=== PATIENT | female | born 1970 | race Two or more races ===

== ENCOUNTER 2016-12-26 11:18 | Emergency (ER) | payer OTHER ==
[2016-12-26] MEDS ORDERED: diPHENhydraMINE PO* 50 MG PO ONE (11:30)
[2016-12-26] MEDS ORDERED: Famotidine IV* 10 MG/ML 2 ML (20 mg) IV SLOW PU ONE (11:52)
[2016-12-26] MEDS ORDERED: methylPREDNISolone 125 MG* 2 ML VIAL IV ONE (11:52)
[2016-12-26] MEDS ORDERED: Albuterol 2.5 MG/3 ML NEB.SOL* (0.083%) INH ONE (11:56)
[2016-12-26] MEDS ORDERED: diPHENhydraMINE IV* 50 MG/ML 1 ml VIAL (BENADRYL) IV ONE (12:00)
[2016-12-26] MEDS ORDERED: NS 0.9% 1000 ML* 1,000 ML BOLUS SCH (12:15)
--- NOTE | 2016-12-26 12:17 | UC ---
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 Pt gave herself one Epipen 0.3mg at 10:53, then she repeated a second Epipen 0.3mg at 11:10am because she was feeling her chest tighten like it does when she has an asthma attack. Pt has hx RA on Plaquenil and other immunosuppressives, and also has prior hx RBBB, Vtach, MVP and had an AICD in 2009. Pt states the leads kept scarring and the AICD was removed and "she passed" a subsequent EP study in 2014 and did not need the AICD re-implanted. Pt follows with cardiology at [facility] in [facility]. Pt has been advised to use xopenex rather than albuterol because of her hx arrythmia. Pt came to urgent care because she was hoping she did not have to go to the ER. Pt ambulated in to urgent care, driven by a friend, accompanied by her two children. During my evaluation pt's voice changed dramatically from slightly "scratchy" to fully hoarse and pt complained of increased throat tightness. Pt did not complain of palpitations or chest pain during this, and was not wheezing and there were no hives, only the localized swelling at the beesting site on her left cheek. Pt had been given oral benadryl 50mg upon walking into urgent care. When her voice changed, IV was placed and IV solumedrol 125mg was given, pepcid 20mg IV given, additional benadryl 50mg IV given and ambulance and [place] [facility] were called. EKG showed SR 84, RBBB, no acute changes. Pt had diarrhea suddenly after the administration of the meds, ambulated to the BR with assistance and moved her bowels without incidence and then was moved to the ambulance stretcher. - History of Current Complaint Chief Complaint: UCAllergicReaction Stated Complaint: BEE STING - ALLERGIC Time Seen by Provider: 12/26/16 11:37 Hx Obtained From: Patient Hx Last Menstrual Period: one week ago ?: No Onset/Duration: Sudden Onset, Lasting Hours, Still Present Severity Initially: Moderate Severity Currently: Moderate Pain Intensity: 3 Pain Scale Used: 0-10 Numeric Location: Discrete @ - beesting to left cheek Character: Swelling Aggrevating Factor(s): Nothing Alleviating Factor(s): Epinephrine - x 2 given Associated Signs And Symptoms: Positive: Chest Pain, Difficulty Breathing, Hoarseness, Throat Tightening - Related Hx Possible Reaction To: Insect - beesting - Allergies/Home Medications Allergies/Adverse Reactions: Allergies Allergy/AdvReac Type Severity Reaction Status Date / Time Cephalexin [From Keflex] Allergy Hives Verified 12/26/16 11:24 Iodinated Diagnostic Agents Allergy Hives Verified 12/26/16 11:24 Latex Allergy Hives Verified 12/26/16 11:24 Penicillins Allergy Hives Verified 12/26/16 11:24 Sulfa Antibiotics Allergy Hives Verified 12/26/16 11:24 Vancomycin Allergy See Comment Verified 12/26/16 11:24 adhesive by 3M Allergy Hives Uncoded 12/26/16 11:24 MRI contrast Allergy Hives Uncoded 12/26/16 11:24 Home Medications: Home Medications Leflunomide [Arava] 20 mg PO DAILY 12/26/16 [History Confirmed 12/26/16] PMH/Surg Hx/FS Hx/Imm Hx Previously Healthy: No - RA, anaphylaxis to beestings Cardiovascular History: Pacemaker/ICD - AICD for vtach placed 2009, removed 2014 , Other - RBBB, MVP Other Cardiovascular History: RBBB, MVP Respiratory History: Asthma - Surgical History Surgical History: Yes Surgery Procedure, Year, and Place: Ovarian CA partial oopharctomy 2002 Bariatric 2009. Adrenal mass removed lt side 2005,. Twisted bowel sm intestine 2012. AICD 2009. AICD removal 2014. Tonsillectomy and adenoidectomy 1990. Hernia repair and abdominoplasty 2016. Wound I&D 2016 - Family History Known Family History: Positive: Other - Breast Cancer - Social History Lives: With Family Alcohol Use: Daily Alcohol Amount: wine daily Substance Use Type: None Substance Use Comment - Amount & Last Used: OCCASSIONALLY USES MARIJUANA Smoking Status (MU): Never Smoked Tobacco Have You Smoked in the Last Year: No - Immunization History Most Recent Influenza Vaccination: 2016 Most Recent Tetanus Shot: 2013 Most Recent Pneumonia Vaccination: 2013 Review of Systems Constitutional: Negative Skin: Rash - redness, swelling at left cheek beesting site, no other rash or hives Eyes: Negative ENT: Other - hoarse voice, throat tightness Respiratory: Negative Cardiovascular: Negative Gastrointestinal: Diarrhea - x 1 in UC after meds Motor: Negative Neurovascular: Negative Musculoskeletal: Negative Neurological: Negative Psychological: Negative All Other Systems Reviewed And Are Negative: Yes Physical Exam Triage Information Reviewed: Yes Appearance: Well-Appearing, Well-Nourished, Pain Distress Vital Signs: Initial Vital Signs Temp 98.2 F 12/26/16 11:19 Pulse 88 12/26/16 11:19 Resp 14 12/26/16 11:19 BP 153/99 12/26/16 11:19 Pulse Ox 97 12/26/16 11:19 Vital Signs Reviewed: Yes Eyes: Positive: Conjunctiva Clear ENT: Positive: Pharynx normal, Muffled/hoarse voice, Other: - no uvula edema Neck: Positive: Supple, Nontender, No Lymphadenopathy Respiratory: Positive: Chest non-tender, No respiratory distress, No accessory muscle use, Decreased breath sounds - throughout Cardiovascular: Positive: RRR, No Murmur, Pulses Normal, Brisk Capillary Refill Abdomen Description: Positive: Nontender, Soft Musculoskeletal: Positive: Strength Intact, ROM Intact Neurological: Positive: Alert, Muscle Tone Normal Psychological Exam: Normal Skin: Positive: Other - beesting site with redness swelling 4cm diameter, left cheek. Negative: rashes Allergic Reaction Course/Dx - Course Course Of Treatment: As per HPI, pt walked into in no distress. Rece'd po benadryl after triage. Upon further evaluation pt became increasing hoarse in front of us and complained of throat tightness. IV meds were then given. Solumedrol 125, Pepcid 20mg, additional benadryl 50mg IV. EKG SR, 84, nl AVCT, RBBB, no acute changes. QTc 497. CRITICAL CARE TIME 30 minutes - Differential Dx/Diagnosis Differential Diagnosis/HQI/PQRI: Airway Obstruction, Anaphylaxis, Bronchospasm Provider Diagnoses: acute anaphylaxis to beesting - Physician Notification/Consults Instructed by Provider To: Transfer - to [facility] ED, discussed with Dr. Weber and KARISHMA Hutchinson. Discharge - Discharge Plan Condition: Guarded Disposition: TRANS HIGHER LVL OF CARE FAC Discharge Disposition Comment: transfer to [facility] via ambulance, ALS Referrals: Faiza BARNEY,Leni Carreon [Primary Care Provider] -
[2016-12-26 12:18] VITALS: BP 198/100
== END 2016-12-26 12:21 | disposition short-term general hospital (02) ==
LOC: UCCORT 11:18
DX: T63.441A Toxic effect of venom of bees, accidental (unintentional), initial encounter (principal); T78.2XXA Anaphylactic shock, unspecified, initial encounter; R07.89 Other chest pain; R06.00 Dyspnea, unspecified; R07.0 Pain in throat; X58.XXXA Exposure to other specified factors, initial encounter; M06.9 Rheumatoid arthritis, unspecified; Z95.0 Presence of cardiac pacemaker; I45.10 Unspecified right bundle-branch block; I34.1 Nonrheumatic mitral (valve) prolapse; J45.909 Unspecified asthma, uncomplicated; Z98.84 Bariatric surgery status; Z85.43 Personal history of malignant neoplasm of ovary; Z88.1 Allergy status to other antibiotic agents; Z91.030 Bee allergy status; Z91.041 Radiographic dye allergy status; Z91.040 Latex allergy status; Z88.0 Allergy status to penicillin; Z88.2 Allergy status to sulfonamides; Z91.048 Other nonmedicinal substance allergy status; F12.90 Cannabis use, unspecified, uncomplicated
CPT/HCPCS: 93005; 96374; 96375; 99213; A9270-GY; G0463; J1200; J2930

== ENCOUNTER 2017-11-24 16:10 | Emergency (ER) | payer OTHER ==
--- OUTSIDE RECORDS SUMMARY | 2017-11-24 16:54 | XMS REPORT ---
:1970 External Reference #:[id number] Author Organization [facility] Address [address] [place] [address] [place] [address] Phone [phone] Care Team Providers Name Role Phone Leni Kendall PA Primary Care Physician Unavailable Payers Type Date Identification Numbers Payment Provider Subscriber Commercial Effective: Policy Number: [id number] Dashawn Martins 2017 Group Number: [id number] [address] PayID: [id number] [place] [address] Medigap Part B Effective: 2017 Policy Number: [id number] Medicaid Shasta Martins Expires: 2017 Group Name: 1 1 [address] PayID: [id number] [place] [address] Problems Date Description Provider Status Onset: 03/09/2016 Rheumatoid arthritis Jose Luis Williamson M.D.,FACP Active Family History Date Family Member(s) Problem(s) Comments General Arthritis General paternal GM had arthritis Father Psoriasis Father Hypertension Father Hypercholesterolemia Mother cerebral aneurysm age 56 Mother Hypertension Mother Diabetes Mother headaches Siblings 1 twin brother - high cholesterol, hypertension, diabetes Social History Type Date Description Comments Marital Status Marital Status Significant Other Occupation Unemployed Cigarette Use Never Smoked Cigarettes ETOH Use Consumes 1 glass of wine per day Smoking Patient has never smoked Recreational Drug Use Sporadically uses Marijuana Daily Caffeine Consumes on average 2 cups of regular coffee per day Exercise Type/Frequency Exercises sporadically Allergies, Adverse Reactions, Alerts Date Description Reaction Status Severity Comments 09/29/2015 Cephalexin Urticaria active 09/29/2015 Latex Urticaria active 09/29/2015 Penicillin Urticaria active 09/29/2015 Sulfa Antibiotics Urticaria active 09/29/2015 Vancomycin active 09/29/2015 Tape Urticaria active 3M 09/29/2015 MRI Contrast Urticaria active 10/24/2015 Gadolinium Urticaria active 06/12/2016 Fentanyl agitation/ confusion active Medications Medication Date Status Form Strength Qnty SIG Indications Ordering Provider Shingrix 11/11 Active Suspension 50mcg 2unit 0.5 Rec s milliliter Lala, s M.D. intramuscu lar times 1, followed by 0.5ml intramuscu lar 2-6 months after dose #1 Xeljanz 11/10 Active Tablets 5mg 60tab 1 by mouth s twice a Lala, day M.D. Thumb Brace 11/10 Active Misc 2unit please use s nightly to Lala, stabilize M.D. thumb due to pain from carpometac arpal arthritis on the right Dz Code 715.14 Neoprene Patella 08/28 Active Misc 2unit use daily s for the Lala, Support/Large left knee M.D. for stabilizat ion Gabapentin 07/29 Active Capsules 300mg 150ca taper up G43.719 ps to 1 by martin Espinal in M.D. am, 1 at noon, and 3 at bedtime. Oxymorphone HCL 07/01 Active Tablets ER 5mg 60tab take one M06.9 12HR s capsule/ta Lala, blet by M.D. mouth twice daily, to fill 11/03 Nitro-bid 04/30 Active Ointment 2% 30uni apply M05.79 ts small Lala, amount to M.D. webs of digits as needed for attack of raynaud's Duloxetine HCL 04/[address] 60mg 30cap take 1 Part s capsule Lala, every day M.D. Hydrocodone-Aceta 10/03 Active Tablets 7.5-325mg 60tab take one M06.9 min s to 1.5 Lala, tabs a day M.D. as needed, breakthrou gh pain Systane 08/29 Active Solution 0.4-0.3% 30uni apply H16.221 Cristofer Preservative Free ts twice Lala, daily for M.D. dry eyes Cane/Adjustable/A 08/19 Active Misc 1unit please use M79.7 Cristofer luminum/ s daily as Lala, Handle needed for M.D. support of joints with a cane Mattress Cover 08/19 Active Misc 1unit Use for M79.7 s support Timothy Reeves Trazodone HCL 08/19 Active Tablets 50mg 30tab take one M25.559 s tablet by Lala, mouth at M.D. bedtime. as needed for insomnia Splint Wrist 07/12 Active Misc 2unit use at Cristofer Brace/Left-Right s night and Drew Reeves during the M.D. day if working with hands Wrist Splint 07/08 Active Misc 2unit use daily M79.7 s to help Lala with Timothy numbness and tingling in the right and left hand BD TB Syringe 06/10 Active 4unit To Be Used Cristofer 27GX1/2" s With MTX Lala, Injections M.D. Once Weekly Ativan 03/08 Active Tablets 0.5mg 60tab take 1 or F06.4 s 2 tabs Lala, daily as M.D. needed for anxiety Cyclobenzaprine 02/21 Active Tablets 5mg 30tab take 1 M26.603 s tablet by Lala, mouth at M.D. bedtime as needed for muscle spasms Voltaren 01/01 Active Gel 1% 200gm apply 2 M79.641 grams Lala, twice M.D. daily as needed for pain to the hands BD 1ML Tuberculin 12/19 Active Misc 27G X 15uni to be used Cristofer Syringe/Safetygli /20152" 1 ML ts with mtx Lala, de TB Needle injections M.D. 27GX1/2" once weekly Salagen 11/29 Active Tablets 5mg 180ta Take One bs By Mouth Lala, In The M.D. Morning, One AT Noon, One AT Dinner Time And One AT Bedtime Hydroxychloroquin 11/01 Active Tablets 200mg 180ta 1 tabs by Cristofer capellan bs mouth Lala, twice a M.D. day Xopenex HFA Active Aerosol 45mcg/Act 15gm 2 three Unknown /0000 times a day as needed Cyanocobalamin Active Solution 1000mcg/M 1 Unknown /0000 L milliliter s intramuscu lar [id number] Slow Fe Active Tablets ER 142(45Fe) 30tab 1 by mouth Unknown /0000 mg s every day Flovent HFA Active Aerosol 110mcg/Ac 2 puffs Unknown /0000 t twice daily Fexofenadine HCL Active Tablets 180mg 1 by mouth Mona- daily Leni gutierrez PA Epipen 2-Alan Active Solution 0.3mg/0.3 2unit as needed Mona- Auto-Inject ML s as moriah gutierrez PA Premarin Active Cream 0.625mg/G use1 Unknown /0000 M applicator intavagina l 2x per week or as directed Vitamin D3 Active Capsules [id number] one by Unknown /0000 mouth once weekly Acetaminophen Active Tablets 500mg 2 tabs 3 Unknown Extra Strength /0000 times daily as needed for pain Slow-Mag Active Tablets DR 71.5-119m 30tab 2 by mouth Unknown /0000 g s every day Multi Complete Active Capsules 30cap 1 by mouth Unknown /0000 s every day Botox Active Solution 100Unit for Unknown /0000 Rec headaches Montelukast Active Tablets 10mg 1 by mouth Unknown Sodium /0000 every day Cimzia Starter 10/30 Hx Kit 6X 200 9unit inject M05.79 Cristofer mg/ML s 400mg Lala, - under the M.D. 11/10 skin at weeks 0, 2, and 4 then 200mg sq every 2 weeks, to start 2 weeks after your last Kevzara Prednisone 10/20 Hx Tablets 10mg 30tab take 4 s tabs by Lala, - mouth M.D. 10/30 daily for 2 days then 3 tabs daily for 2 days then 2 tabs for 2 days then 1 tab for 2 days then d/c Medrol 08/28 Hx TBPK 4mg 21uni take as ts directed Lala, - until M.D. 09/11 as a medrol dose pack Kevzara 07/29 Hx Soln 200mg/1.1 6.84m sq every 2 M05.79 Prefill 4ML l weeks Lala, - Syringe M.D. 10/30 Orencia Clickject 07/17 Hx Solution 125mg/ml 4unit inject M05.79 Auto-Inject s contents Lala, - of one M.D. 07/21 syringe under the skin every week Prednisone 07/08 Hx Tablets 10mg 30tab take 4 s tabs by Lala, - mouth M.D. 07/28 daily for 2 days then 3 tabs daily for 2 days then 2 tabs for 2 days then 1 tab for 2 days then d/c Gabapentin 05/28 Hx Capsules 100mg 270ca 3 by mouth G43.719 Aysha ps three Cowdery, - times a M.D. Lyrica 03/31 Hx Capsules 50mg 30cap take one s capsule/ta Lala, - blet daily M.D. 04/30 by mouth (in addition to the 100mg capsule at night for a total of 150mg per day) Humira Pen 03/18 Hx PNKT 40mg/0.8M 6unit inject M05.79 L s 40mg Lala, - subcutaneo M.D. 07/29 usly every other week Duloxetine HCL 03/[address] 30mg 60cap please M05.79 Part s take Lala, - 1capusule M.D. 05/27 by mouth (along with the 60 mg) daily Cymbalta 02/[address] 30mg 60cap 2 daily M05.79 Part s ongoing Lala, - M.D. 03/12 Actemra 01/27 Hx Soln 162mg/0.9 4unit inject Prefill ML s 162mg Lala, - Syringe subcutaneo M.DSheree 03/18 usly every week Oxymorphone HCL 01/14 Hx Tablets ER 7.5mg 60tab take one M06.9 12HR s capsule/ta Lala, - blet by M.DSheree 07/01 mouth twice daily Lyrica 01/02 Hx Capsules 100mg 30cap one M79.7 s capsule by Lala, - mouth at M.D. 04/30 bedtime (along with 50 mg dose for a total dose of 150 mg) Oxymorphone HCL 12/24 Hx Tablets ER 10mg 60tab Take one M06.9 12HR s capsule/ta Lala, - blet by M.DSheree 01/14 twice daily Stop the 5mg dose, avoid with driving Lyrica 12/24 Hx Capsules 75mg 60cap M79.7 s Lala, - M.DSheree 01/02 Magnesium-Oxide 12/07 Hx Tablets 400(241.3 180ta take one mg) mg bs capsule/ta Lala, - blet by M.DSheree 07/28 mouth twice daily Oxymorphone HCL 08/30 Hx Tablets ER 5mg 60tab take one M06.9 12HR s capsule/ta Lala, - blet by M.DSheree 12/24 mouth twice daily Restasis 08/19 Hx Emulsion 0.05% 30uni instill H16.221 ts one drop Lala, - of M.D. 08/29 restasis ophthalmic emulsion twice a day in each eye approximat camryn 12 hours apart Leflunomide 08/19 Hx Tablets 20mg 60tab Take One s By Mouth Lala, - Every Day M.D. 11/10 Leflunomide 07/19 Hx Tablets 10mg 30tab take one s capsule/ta Lala, - blet daily M.D. 08/19 by mouth Butrans 07/17 Hx Patches 10mcg/HR 4unit topical M06.9 Weekly s every 7 Lala, - days (she M.D. 10/03 failed Morphine) Morphine Sulfate 07/10 Hx Tablets ER 15mg 14tab 1 by mouth s twice a Lala, - day M.D. 07/17 Imuran 07/08 Hx Tablets 50mg 60tab take two s tablets by Lala, - mouth M.D. 07/08 every day Butrans 06/06 Hx Patches 10mcg/HR 4unit topical M06.9 Weekly s every 7 Lala, - days M.D. 07/08 Dilaudid 06/06 Hx Tablets 2mg 28tab take 1 by M06.9 s mouth Lala, - every 6 M.D. 10/03 hours needed for chronic pain Levofloxacin 04/01 Hx Tablets 500mg 21tab 1 by mouth M27.2 s every day D. - Marc, 04/25 M.D. Hydroxyzine HCL 03/29 Hx Tablets 25mg 45tab please M06.9 s take 2 at [facility], - night as M.D. 12/24 needed for itching Levofloxacin 03/20 Hx Tablets 500mg 7tabs 1 by mouth L03.211 every day D. - Marc, 03/29 M.D. Dilaudid 02/21 Hx Tablets 2mg 15tab 1 tab q4h M26.603 Jose Luis s prn Benedict Williamson - Timothy,FACP 04/25 Rituxan 02/21 Hx Solution 100mg/10M 500mg 375 mg/m2 M05.79 L weekly x 4 Lala, - doses On M.D. 11/13 Hold PT Duloxetine HCL 02/[address] 30mg 90cap please Part s take 2 Lala, - tabs daily M.D. 01/26 Duloxetine HCL 01/[address] 60mg 30cap 1 by mouth Part s every day Lala, - M.D. 02/05 Cymbalta 01/[address] 30mg 60cap 1 by mouth M05.79 Part s every day Lala, - for 1 week M.D. 01/24 then daily ongoing (please taper off of Celexa) Methotrexate 12/18 Hx Solution 50mg/2ML 40ml 0.8 M05.79 Cristofer Sodium (PF) milliliter Lala, - s sc M.D. 08/19 weekly ( day supply please) On Hold Per PT Hydrocodone-Aceta 12/17 Hx Tablets 10-325mg 90tab 1 tab by M26.603 Cristofer min s mouth up Lala, - to 3 times M.D. 02/21 daily as needed for pain Imodium A-D 12/17 Hx Tablets 2mg 45tab one by s mouth once Lala, - a day as M.D. 01/26 needed for diarrhea - OTC Zofran 11/29 Hx Tablets 8mg 12tab take 1 s tablet by Lala, - mouth M.D. 07/28 every as needed for nausea Neutrasal 11/20 Hx Packet 30uni Use as M05.79 ts needed for Lala, - dry mouth M.D. 01/01 R68.2 Hydrocodone-Acetaminophen 11/21/2015 Hx Tablets 7.5-325mg 60tabs take one M05.79 Cristofer - capsule/tablet Lala, 12/18/2015 by mouth twice M.D. daily as needed for pain Methotrexate 11/21/2015 Hx Tablets 2.5mg 30tabs Take 4 Tablets M05.79 Cristofer - Once Weekly Lala, 12/19/2015 M.D. Folic Acid 11/21/2015 Hx Tablets 1mg 30tabs take one tablet M05.79 Cristofer - daily by mouth Lala, 08/28/2017 M.D. Evoxac 11/02/2015 Hx Capsules 30mg 45caps Take 1 Capsule Cristofer - Three Times Lala, 11/30/2015 Daily By Mouth M.D. as Needed For Dry Mouth Aspirin Adult Low Dose Hx Tablets 81mg 1 by mouth Unknown - DR every day 01/26/2017 Ibuprofen Hx Tablets 600mg 1 by mouth Unknown - every 6 hrs as 01/02/2016 needed Celexa Hx Tablets 40mg 1 by mouth M05.79 Unknown - every day 01/23/2016 Ascorbic Acid Hx Tablets 500mg 1 tab by mouth Unknown - three times 01/26/2017 daily Slow Mag Ec Tab Hx 1 po bid Unknown - 01/26/2017 Lorazepam Hx Tablets 1mg 1 by mouth Unknown - every 8 hrs prn 01/23/2016 Fluticasone Propionate Hx Suspensi 50mcg/Act 1 sprays each Unknown - on nostril twice 11/21/2015 daily as needed Diclofenac Potassium Hx Tablets 1mg 1 po qd Unknown - 10/24/2015 Gabapentin Hx Capsules 300mg 1 by mouth Unknown - three times a 12/24/2016 day Zyvox Hx Tablets 600mg 1 by mouth Unknown - twice a day 10/17/2015 Dilaudid Hx Tablets 2mg 1-2 tabs by Unknown - mouth every 4-6 11/21/2015 hours as needed pain Ergocalciferol Hx Capsules [id number] 1 tab by mouth Unknown - every week 01/02/2016 Clindamycin HCL Hx Capsules 300mg 1 cap PO q 8 Unknown - hrs x 7 days 03/28/2016 Levaquin Hx Tablets 500mg 1 by mouth Unknown - every day x 10 04/25/2016 days Fentanyl Hx Patches 25mcg/HR apply one patch M06.9 Unknown - 72HR once every 3 06/06/[address] Queen Bupropion HCL ER (XL) Hx Tablets 300mg Take 1 Tablet Unknown - ER 24HR By Mouth Every 12/26/2016 Day Slow Iron Hx Tablets 160mg Unknown - ER 12/24/2016 Pilocarpine HCL Hx Tablets 5mg 3-4 times a day Unknown - 01/26/2017 Flonase Sensimist Hx Suspensi 27.5mcg/Sp 2 sprays in Unknown - on ray each nostril 07/28/2017 daily as needed sinusitis Medications Administered in Office Medication Date Status Form Strength Qnty SIG Indications Ordering Provider Triamcinolone 11/19/ Administered Injection Cristofer (Kenalog) 2017 Timothy Reeves PPD 02/25/ Administered Injection Cristofer 2016 Timothy Reeves Triamcinolone 12/24/ Administered Injection Cristofer Padron) 2016 Timothy Reeves Immunizations CPT Code Status Date Vaccine Reaction Lot # [id number] Given 10/31/2017 Pneumococcal Conjugate [id number] Vaccine 13 Valent For Intramuscular Use 38636 Given 02/25/2017 Influenza Virus Vaccine, no immediate reaction [id number] Quadrivalent, Split, noted Preservative Free Vital Signs Date Vital Result Comment 10/30/2017 Height 62 inches 5'2" Heart Rate 72 /min BP Systolic Sitting 120 mmHg BP Diastolic Sitting 64 mmHg Respiratory Rate 14 /min Pain Level 7 09/12/2017 Height 62 inches 5'2" Weight 234.00 lb Heart Rate 74 /min BP Systolic Sitting 108 mmHg BP Diastolic Sitting 68 mmHg Respiratory Rate 16 /min BMI (Body Mass Index) 42.8 kg/m2 08/28/2017 Height 62 inches 5'2" Weight 237.00 lb Heart Rate 68 /min BP Systolic Sitting 110 mmHg BP Diastolic Sitting 80 mmHg Respiratory Rate 14 /min Pain Level 8 BMI (Body Mass Index) 43.3 kg/m2 07/29/2017 Height 62 inches 5'2" Weight 214.00 lb Heart Rate 82 /min BP Systolic Sitting 116 mmHg BP Diastolic Sitting 64 mmHg Respiratory Rate 16 /min Pain Level 6 O2 % BldC Oximetry 98 % ra BMI (Body Mass Index) 39.1 kg/m2 07/17/2017 Height 62 inches 5'2" Heart Rate 76 /min BP Systolic Sitting 120 mmHg BP Diastolic Sitting 68 mmHg Respiratory Rate 14 /min Pain Level 9 07/01/2017 Weight 232.12 lb Heart Rate 94 /min BP Systolic Sitting 118 mmHg BP Diastolic Sitting 80 mmHg Pain Level 7 O2 % BldC Oximetry 98 % 06/20/2017 Height 62 inches 5'2" Weight 230.50 lb Heart Rate 64 /min BP Systolic 116 mmHg BP Diastolic 68 mmHg BMI (Body Mass Index) 42.2 kg/m2 05/28/2017 Height 62 inches 5'2" Weight 228.00 lb Heart Rate 76 /min BP Systolic Sitting 134 mmHg BP Diastolic Sitting 88 mmHg Respiratory Rate 16 /min BMI (Body Mass Index) 41.7 kg/m2 04/30/2017 Height 62 inches 5'2" Weight 232.00 lb Heart Rate 74 /min BP Systolic Sitting 137 mmHg BP Diastolic Sitting 77 mmHg Respiratory Rate 14 /min Pain Level 8 BMI (Body Mass Index) 42.4 kg/m2 02/25/2017 Height 62 inches 5'2" Weight 220.00 lb w/ shoes Heart Rate 66 /min BP Systolic Sitting 112 mmHg Rue, lg cuff BP Diastolic Sitting 74 mmHg Rue, lg cuff Respiratory Rate 16 /min Pain Level 5 "fibromyalgia points" BMI (Body Mass Index) 40.2 kg/m2 01/14/2017 Height 62 inches 5'2" Weight 220.25 lb Heart Rate 80 /min BP Systolic Sitting 106 mmHg BP Diastolic Sitting 70 mmHg Respiratory Rate 14 /min Pain Level 6 BMI (Body Mass Index) 40.3 kg/m2 12/24/2016 Height 62 inches 5'2" Weight 221.00 lb Heart Rate 80 /min BP Systolic Sitting 124 mmHg BP Diastolic Sitting 70 mmHg Respiratory Rate 14 /min Pain Level 7 BMI (Body Mass Index) 40.4 kg/m2 10/03/2016 Height 62 inches 5'2" Weight 217.00 lb Heart Rate 80 /min BP Systolic Sitting 130 mmHg BP Diastolic Sitting 70 mmHg Respiratory Rate 14 /min Pain Level 4 BMI (Body Mass Index) 39.7 kg/m2 08/19/2016 Height 62 inches 5'2" Weight 216.00 lb Heart Rate 81 /min BP Systolic Sitting 148 mmHg BP Diastolic Sitting 97 mmHg Respiratory Rate 14 /min Body Temperature 97.0 F Pain Level 6 BMI (Body Mass Index) 39.5 kg/m2 07/08/2016 Height 62 inches 5'2" Weight 214.00 lb Heart Rate 80 /min BP Systolic Sitting 146 mmHg BP Diastolic Sitting 90 mmHg Body Temperature 97.9 F Pain Level 4 BMI (Body Mass Index) 39.1 kg/m2 06/06/2016 Height 62 inches 5'2" Weight 203.12 lb Heart Rate 81 /min BP Systolic Sitting 134 mmHg BP Diastolic Sitting 92 mmHg Respiratory Rate 14 /min Body Temperature 96.9 F Pain Level 8 BMI (Body Mass Index) 37.1 kg/m2 04/26/2016 Height 62 inches 5'2" Weight 201.50 lb Heart Rate 84 /min BP Systolic Sitting 118 mmHg BP Diastolic Sitting 78 mmHg Respiratory Rate 14 /min Body Temperature 97.6 F BMI (Body Mass Index) 36.9 kg/m2 04/01/2016 Height 62 inches 5'2" Weight 201.00 lb Heart Rate 84 /min BP Systolic Sitting 118 mmHg BP Diastolic Sitting 80 mmHg Respiratory Rate 14 /min Body Temperature 98.0 F BMI (Body Mass Index) 36.8 kg/m2 03/29/2016 Height 62 inches 5'2" Weight 201.00 lb Heart Rate 86 /min BP Systolic Sitting 122 mmHg BP Diastolic Sitting 80 mmHg Respiratory Rate 14 /min Body Temperature 97.4 F Pain Level 6 BMI (Body Mass Index) 36.8 kg/m2 03/20/2016 Height 62 inches 5'2" Weight 200.12 lb Heart Rate 84 /min BP Systolic Sitting 124 mmHg BP Diastolic Sitting 86 mmHg Respiratory Rate 14 /min Body Temperature 97.5 F Pain Level 6 BMI (Body Mass Index) 36.6 kg/m2 02/22/2016 Height 62 inches 5'2" Weight 197.00 lb Heart Rate 68 /min BP Systolic Sitting 110 mmHg BP Diastolic Sitting 70 mmHg Respiratory Rate 14 /min Body Temperature 97.5 F Pain Level 9 BMI (Body Mass Index) 36.0 kg/m2 01/23/2016 Height 62 inches 5'2" Weight 193.00 lb Heart Rate 72 /min BP Systolic Sitting 110 mmHg BP Diastolic Sitting 68 mmHg Body Temperature 98.8 F Pain Level 7 BMI (Body Mass Index) 35.3 kg/m2 01/02/2016 Height 62 inches 5'2" Weight 193.00 lb Heart Rate 60 /min BP Systolic Sitting 124 mmHg BP Diastolic Sitting 78 mmHg Body Temperature 98.8 F Pain Level 7 BMI (Body Mass Index) 35.3 kg/m2 12/19/2015 Height 62 inches 5'2" Weight 191.00 lb Heart Rate 64 /min BP Systolic Sitting 118 mmHg BP Diastolic Sitting 78 mmHg Body Temperature 98.0 F Pain Level 6 BMI (Body Mass Index) 34.9 kg/m2 11/21/2015 Height 62 inches 5'2" Weight 192.00 lb Heart Rate 72 /min BP Systolic Sitting 120 mmHg BP Diastolic Sitting 80 mmHg Body Temperature 97.9 F Pain Level 7 BMI (Body Mass Index) 35.1 kg/m2 10/24/2015 Height 62 inches 5'2" Weight 199.00 lb Heart Rate 72 /min BP Systolic Sitting 104 mmHg BP Diastolic Sitting 68 mmHg Body Temperature 98.1 F Pain Level 5 BMI (Body Mass Index) 36.4 kg/m2 10/17/2015 Weight 200.00 lb BP Systolic Sitting 122 mmHg BP Diastolic Sitting 76 mmHg 10/03/2015 Height 62 inches 5'2" Weight 200.00 lb Heart Rate 78 /min BP Systolic Sitting 128 mmHg BP Diastolic Sitting 86 mmHg Respiratory Rate 14 /min Body Temperature 98.9 F BMI (Body Mass Index) 36.6 kg/m2 Results Test Date Test Result H/L Range Note Laboratory test finding 10/30/2017 Erythrocyte Sed Rate 7 mm/Hr 0-14 1 C Reactive Protein < 1.00 mg/L <8.01 2 CBC Auto Diff 10/30/2017 White Blood Count 2.4 10^3/uL Low 3.5-10.8 Red Blood Count 4.25 10^6/uL 4.00-5.40 Hemoglobin 13.7 g/dL 12.0-16.0 Hematocrit 40 % 35-47 Mean Corpuscular Volume 95 fL 80-97 Mean Corpuscular Hemoglobin 32 pg High 27-31 Mean Corpuscular HGB Conc 34 g/dL 31-36 Red Cell Distribution Width 13 % 10.5-15 Platelet Count 179 10^3/uL 150-450 Mean Platelet Volume 7.6 um3 7.4-10.4 Abs Neutrophils 0.8 10^3/uL Low 1.5-7.7 3 Abs Lymphocytes 1.0 10^3/uL 1.0-4.8 Abs Monocytes 0.4 10^3/uL 0-0.8 Abs Eosinophils 0.1 10^3/uL 0-0.6 Abs Basophils 0 10^3/uL 0-0.2 Abs Nucleated RBC 0 10^3/uL Granulocyte % 33.2 % Low 38-83 Lymphocyte % 43.3 % 25-47 Monocyte % 16.8 % High 0-7 Eosinophil % 5.6 % 0-6 Basophil % 1.1 % 0-2 Nucleated Red Blood Cells % 0.1 Comp Metabolic Panel 10/30/2017 Sodium 140 mmol/L 135-145 Potassium 4.0 mmol/L 3.5-5.0 Chloride 102 mmol/L 101-111 Co2 Carbon Dioxide 31 mmol/L 22-32 Anion Gap 7 mmol/L 2-11 Glucose 80 mg/dL 70-100 Blood Urea Nitrogen 12 mg/dL 6-24 Creatinine 0.73 mg/dL 0.51-0.95 BUN/Creatinine Ratio 16.4 8-20 Calcium 9.4 mg/dL 8.6-10.3 Total Protein 6.6 g/dL 6.4-8.9 Albumin 4.2 g/dL 3.2-5.2 Globulin 2.4 g/dL 2-4 Albumin/Globulin Ratio 1.8 1-3 Total Bilirubin 1.10 mg/dL High 0.2-1.0 Alkaline Phosphatase 37 U/L 34-104 Alt 12 U/L 7-52 Ast 13 U/L 13-39 Egfr Non- 85.1 >60 Egfr 103.0 >60 4 Drug Abuse 20 Urine 10/30/2017 Urine Amphetamine Negative ng/mL 5 Urine Barbiturates Negative ng/mL 6 Urine Benzodiazepines Negative ng/mL 7 Urine Cocaine Negative ng/mL 8 Urine Phencyclidine Negative ng/mL Cutoff: 25 Urine Tetrahydrocannabinol Negative ng/mL Cutoff: 50 9 Creatinine, Urine 103.7 mg/dL Specific [place] 1.008 pH 7.5 Oxidants Negative 10 Adulterants Comment Normal Codeine, Ur Not Detected ng/mL Cutoff: 25 11 Amqwayt-9-sygy-glucuronide, Ur Not Detected ng/mL 12 Morphine, Ur Not Detected ng/mL Cutoff: 25 13 Xwngpocn-5-acnj-glucuronide, U Not Detected ng/mL 14 6-monoacetylmorphine, Ur Not Detected ng/mL Cutoff: 25 15 Hydrocodone, Ur Present ng/mL Cutoff: 25 16 Norhydrocodone, Ur Present ng/mL Cutoff: 25 17 Dihydrocodeine, Ur Present ng/mL Cutoff: 25 18 Hydromorphone, Ur Not Detected ng/mL Cutoff: 25 19 Ildmvdnkwongf1ksttbhojxjjqrhb Not Detected ng/mL 20 Oxycodone, Ur Not Detected ng/mL Cutoff: 25 21 Noroxycodone, Ur Not Detected ng/mL Cutoff: 25 22 Oxymorphone, Ur Not Detected ng/mL Cutoff: 25 23 Cztyrddxnks-1-shkg-glucuronide Present ng/mL 24 Noroxymorphone, Ur Not Detected ng/mL Cutoff: 25 25 Fentanyl, Ur Not Detected ng/mL Cutoff: 2 26 Norfentanyl, Ur Not Detected ng/mL Cutoff: 2 27 Meperidine, Ur Not Detected ng/mL Cutoff: 25 28 Normeperidine, Ur Not Detected ng/mL Cutoff: 25 29 Naloxone, Ur Not Detected ng/mL Cutoff: 25 30 Ojswwejl-6-qqns-glucuronide, U Not Detected ng/mL 31 Methadone, Ur Not Detected ng/mL Cutoff: 25 32 Eddp, Ur Not Detected ng/mL Cutoff: 25 33 Propoxyphene, Ur Not Detected ng/mL Cutoff: 25 34 Norpropoxyphene, Ur Not Detected ng/mL Cutoff: 25 35 Tramadol, Ur Not Detected ng/mL Cutoff: 25 36 O-desmethyltramadol, Ur Not Detected ng/mL Cutoff: 25 37 Tapentadol, Ur Not Detected ng/mL Cutoff: 25 38 N-desmethyltapentadol, Ur Not Detected ng/mL Cutoff: 50 39 Phisftgjlz-hqyj-okovhkwqael, U Not Detected ng/mL 40 Buprenorphine, Ur Not Detected ng/mL Cutoff: 5 41 Norbuprenorphine, Ur Not Detected ng/mL Cutoff: 5 42 Norbuprenorphine glucuronide Not Detected ng/mL Cutoff: 20 43 Opioid Interpretation See Comment 44 Laboratory test finding 10/30/2017 Pathologist Review (SEE NOTE) 45 Comp Metabolic Panel 07/28/2017 Sodium 136 mmol/L 133-145 Potassium 4.6 mmol/L 3.5-5.0 Chloride 100 mmol/L Low 101-111 Co2 Carbon Dioxide 30 mmol/L 22-32 Anion Gap 6 mmol/L 2-11 Glucose 86 mg/dL 70-100 Blood Urea Nitrogen 12 mg/dL 6-24 Creatinine 0.68 mg/dL 0.51-0.95 BUN/Creatinine Ratio 17.6 8-20 Calcium 9.4 mg/dL 8.6-10.3 Total Protein 7.0 g/dL 6.4-8.9 Albumin 4.4 g/dL 3.2-5.2 Globulin 2.6 g/dL 2-4 Albumin/Globulin Ratio 1.7 1-3 Total Bilirubin 1.20 mg/dL High 0.2-1.0 Alkaline Phosphatase 47 U/L 34-104 Alt 12 U/L 7-52 Ast 13 U/L 13-39 Egfr Non- 92.3 >60 Egfr 118.8 >60 46 Quantiferon Gold TB 07/28/2017 QuantiFERON-Tb Gold Plus Negative Negative 47 TB1 Ag minus Nil Result 0.53 IU/mL TB2 Ag minus Nil Result 0.33 IU/mL TB Mitogen minus Nil Result > 10.00 IU/mL TB Nil Result 4.98 IU/mL 48 Laboratory test finding 07/28/2017 Erythrocyte Sed Rate 20 mm/Hr High 0- 14 49 C Reactive Protein 12.40 mg/L High < 5.00 50 CBC Auto Diff 07/28/2017 White Blood Count 4.6 10^3/uL 3.5-10.8 Red Blood Count 4.17 10^6/uL 4.0-5.4 Hemoglobin 13.4 g/dL 12.0-16.0 Hematocrit 39 % 35-47 Mean Corpuscular Volume 93 fL 80-97 Mean Corpuscular Hemoglobin 32 pg High 27-31 Mean Corpuscular HGB Conc 35 g/dL 31-36 Red Cell Distribution Width 13 % 10.5-15 Platelet Count 166 10^3/uL 150-450 Mean Platelet Volume 8 um3 7.4-10.4 Abs Neutrophils 3.9 10^3/uL 1.5-7.7 Abs Lymphocytes 0.3 10^3/uL Low 1.0-4.8 Abs Monocytes 0.3 10^3/uL 0-0.8 Abs Eosinophils 0.1 10^3/uL 0-0.6 Abs Basophils 0 10^3/uL 0-0.2 Abs Nucleated RBC 0 10^3/uL Granulocyte % 83.4 % High 38-83 Lymphocyte % 7.3 % Low 25-47 Monocyte % 7.5 % High 0-7 Eosinophil % 1.6 % 0-6 Basophil % 0.2 % 0-2 Nucleated Red Blood Cells % 0.2 Laboratory test finding 07/01/2017 Erythrocyte Sed Rate 15 mm/Hr High 0- 14 C Reactive Protein 1.22 mg/L < 5.00 51 CBC W/Auto Diff 07/01/2017 White Blood Count 2.8 10^3/uL Low 3.5-10.8 Red Blood Count 4.08 10^6/uL 4.0-5.4 Hemoglobin 12.7 g/dL 12.0-16.0 Hematocrit 38 % 35-47 Mean Corpuscular Volume 93 fL 80-97 Mean Corpuscular Hemoglobin 31 pg 27-31 Mean Corpuscular HGB Conc 34 g/dL 31-36 Red Cell Distribution Width 13 % 10.5-15 Platelet Count 212 10^3/uL 150-450 Mean Platelet Volume 7 um3 Low 7.4-10.4 Abs Neutrophils 1.3 10^3/uL Low 1.5-7.7 Abs Lymphocytes 1.0 10^3/uL 1.0-4.8 Abs Monocytes 0.4 10^3/uL 0-0.8 Abs Eosinophils 0.1 10^3/uL 0-0.6 Abs Basophils 0 10^3/uL 0-0.2 Abs Nucleated RBC 0 10^3/uL Granulocyte % 46.6 % 38-83 Lymphocyte % 34.9 % 25-47 Monocyte % 15.1 % High 1-9 Eosinophil % 2.4 % 0-6 Basophil % 1.0 % 0-2 Nucleated Red Blood Cells % 0 CMP Panel 07/01/2017 Sodium 136 mmol/L 133-145 Potassium 4.3 mmol/L 3.5-5.0 Chloride 103 mmol/L 101-111 Co2 Carbon Dioxide 27 mmol/L 22-32 Anion Gap 6 mmol/L 2-11 Glucose 92 mg/dL 70-100 Blood Urea Nitrogen 8 mg/dL 6-24 Creatinine 0.64 mg/dL 0.51-0.95 BUN/Creatinine Ratio 12.5 8-20 Calcium 9.3 mg/dL 8.6-10.3 Total Protein 6.7 g/dL 6.4-8.9 Albumin 4.3 g/dL 3.2-5.2 Globulin 2.4 g/dL 2-4 Albumin/Globulin Ratio 1.8 1-3 Total Bilirubin 1.10 mg/dL High 0.2-1.0 Alkaline Phosphatase 50 U/L 34-104 Alt 10 U/L 7-52 Ast 14 U/L 13-39 Egfr Non- 99.0 >60 Egfr 127.4 >60 52 CBC Auto Diff 02/25/2017 White Blood Count 4.9 10^3/uL 3.5-10.8 Red Blood Count 4.02 10^6/uL 4.0-5.4 Hemoglobin 12.9 g/dL 12.0-16.0 Hematocrit 38 % 35-47 Mean Corpuscular Volume 93 fL 80-97 Mean Corpuscular Hemoglobin 32 pg High 27-31 Mean Corpuscular HGB Conc 34 g/dL 31-36 Red Cell Distribution Width 13 % 10.5-15 Platelet Count 210 10^3/uL 150-450 Mean Platelet Volume 8 um3 7.4-10.4 Abs Neutrophils 3.2 10^3/uL 1.5-7.7 Abs Lymphocytes 1.1 10^3/uL 1.0-4.8 Abs Monocytes 0.5 10^3/uL 0-0.8 Abs Eosinophils 0.1 10^3/uL 0-0.6 Abs Basophils 0 10^3/uL 0-0.2 Abs Nucleated RBC 0.01 10^3/uL Granulocyte % 65.9 % 38-83 Lymphocyte % 21.7 % Low 25-47 Monocyte % 10.5 % High 1-9 Eosinophil % 1.3 % 0-6 Basophil % 0.6 % 0-2 Nucleated Red Blood Cells % 0.1 Laboratory test finding 02/06/2017 C Reactive Protein 2.45 mg/L < 5.00 53 Comp Metabolic Panel 02/06/2017 Sodium 140 mmol/L 133-145 Potassium 4.7 mmol/L 3.5-5.0 Chloride 107 mmol/L 101-111 Co2 Carbon Dioxide 26 mmol/L 22-32 Anion Gap 7 mmol/L 2-11 Glucose 66 mg/dL Low 70-100 Blood Urea Nitrogen 12 mg/dL 6-24 Creatinine 0.60 mg/dL 0.51-0.95 BUN/Creatinine Ratio 20.0 8-20 Calcium 8.7 mg/dL 8.6-10.3 Total Protein 6.3 g/dL Low 6.4-8.9 Albumin 4.1 g/dL 3.2-5.2 Globulin 2.2 g/dL 2-4 Albumin/Globulin Ratio 1.9 1-3 Total Bilirubin 0.80 mg/dL 0.2-1.0 Alkaline Phosphatase 50 U/L 34-104 Alt 11 U/L 7-52 Ast 15 U/L 13-39 Egfr Non- 107.2 >60 Egfr 137.8 >60 54 Lipid Profile (Trig/Chol/HDL) 02/06/2017 Triglycerides 65 mg/dL 55 Cholesterol 187 mg/dL 56 HDL Cholesterol 89.4 mg/dL 57 LDL Cholesterol 85 mg/dL 58 CBC Auto Diff 11/25/2016 White Blood Count 4.4 10^3/uL 3.5-10.8 Red Blood Count 3.97 10^6/uL Low 4.0-5.4 Hemoglobin 12.5 g/dL 12.0-16.0 Hematocrit 37 % 35-47 Mean Corpuscular Volume 94 fL 80-97 Mean Corpuscular Hemoglobin 32 pg High 27-31 Mean Corpuscular HGB Conc 34 g/dL 31-36 Red Cell Distribution Width 13 % 10.5-15 Platelet Count 222 10^3/uL 150-450 Mean Platelet Volume 8 um3 7.4-10.4 Abs Neutrophils 2.7 10^3/uL 1.5-7.7 Abs Lymphocytes 1.0 10^3/uL 1.0-4.8 Abs Monocytes 0.5 10^3/uL 0-0.8 Abs Eosinophils 0.1 10^3/uL 0-0.6 Abs Basophils 0 10^3/uL 0-0.2 Abs Nucleated RBC 0 10^3/uL Granulocyte % 61.2 % 38-83 Lymphocyte % 22.6 % Low 25-47 Monocyte % 12.2 % High 1-9 Eosinophil % 3.1 % 0-6 Basophil % 0.9 % 0-2 Nucleated Red Blood Cells % 0.1 Laboratory test finding 11/25/2016 Erythrocyte Sed Rate 21 mm/Hr High 0- 14 Comp Metabolic Panel 11/19/2016 Sodium 138 mmol/L 133-145 Potassium 4.1 mmol/L 3.5-5.0 Chloride 104 mmol/L 101-111 Co2 Carbon Dioxide 28 mmol/L 22-32 Anion Gap 6 mmol/L 2-11 Glucose 96 mg/dL 70-100 Blood Urea Nitrogen 12 mg/dL 6-24 Creatinine 0.66 mg/dL 0.51-0.95 BUN/Creatinine Ratio 18.2 8-20 Calcium 9.0 mg/dL 8.6-10.3 Total Protein 6.9 g/dL 6.4-8.9 Albumin 4.3 g/dL 3.2-5.2 Globulin 2.6 g/dL 2-4 Albumin/Globulin Ratio 1.7 1-3 Total Bilirubin 1.10 mg/dL High 0.2-1.0 Alkaline Phosphatase 55 U/L 34-104 Alt 9 U/L 7-52 Ast 13 U/L 13-39 Egfr Non- 96.0 >60 Egfr 123.5 >60 59 Laboratory test finding 11/19/2016 C Reactive Protein 5.44 mg/L High < 5.00 60 Magnesium 1.7 mg/dL Low 1.9-2.7 61 CBC Auto Diff 08/20/2016 White Blood Count 3.3 10^3/uL Low 3.5-10.8 62 Red Blood Count 3.84 10^6/uL Low 4.0-5.4 Hemoglobin 12.2 g/dL 12.0-16.0 Hematocrit 36 % 35-47 Mean Corpuscular Volume 94 fL 80-97 Mean Corpuscular Hemoglobin 32 pg High 27-31 Mean Corpuscular HGB Conc 34 g/dL 31-36 Red Cell Distribution Width 14 % 10.5-15 Platelet Count 226 10^3/uL 150-450 Mean Platelet Volume 8 um3 7.4-10.4 Abs Neutrophils 1.9 10^3/uL 1.5-7.7 Abs Lymphocytes 0.9 10^3/uL Low 1.0-4.8 Abs Monocytes 0.5 10^3/uL 0-0.8 Abs Eosinophils 0.1 10^3/uL 0-0.6 Abs Basophils 0 10^3/uL 0-0.2 Abs Nucleated RBC 0 10^3/uL Granulocyte % 56.3 % 38-83 Lymphocyte % 26.1 % 25-47 Monocyte % 14.0 % High 1-9 Eosinophil % 2.7 % 0-6 Basophil % 0.9 % 0-2 Nucleated Red Blood Cells % 0.1 Comp Metabolic Panel 08/20/2016 Sodium 138 mmol/L 133-145 Potassium 4.6 mmol/L 3.5-5.0 Chloride 103 mmol/L 101-111 Co2 Carbon Dioxide 33 mmol/L High 22-32 Anion Gap 2 mmol/L 2-11 Glucose 94 mg/dL 70-100 Blood Urea Nitrogen 11 mg/dL 6-24 Creatinine 0.75 mg/dL 0.51-0.95 BUN/Creatinine Ratio 14.7 8-20 Calcium 9.1 mg/dL 8.6-10.3 Total Protein 6.7 g/dL 6.4-8.9 Albumin 4.1 g/dL 3.2-5.2 Globulin 2.6 g/dL 2-4 Albumin/Globulin Ratio 1.6 1-3 Total Bilirubin 1.00 mg/dL 0.2-1.0 Alkaline Phosphatase 50 U/L 34-104 Alt 8 U/L 7-52 Ast 12 U/L Low 13-39 Egfr Non- 82.8 >60 Egfr 106.5 >60 63 Laboratory test finding 08/20/2016 C Reactive Protein 2.22 mg/L < 5.00 64 Erythrocyte Sed Rate 17 mm/Hr High 0-14 65 CBC Auto Diff 07/19/2016 White Blood Count 3.3 10^3/uL Low 3.5-10.8 Red Blood Count 4.07 10^6/uL 4.0-5.4 Hemoglobin 12.7 g/dL 12.0-16.0 Hematocrit 38 % 35-47 Mean Corpuscular Volume 93 fL 80-97 Mean Corpuscular Hemoglobin 31 pg 27-31 Mean Corpuscular HGB Conc 34 g/dL 31-36 Red Cell Distribution Width 16 % High 10.5-15 Platelet Count 218 10^3/uL 150-450 Mean Platelet Volume 7 um3 Low 7.4-10.4 Abs Neutrophils 1.7 10^3/uL 1.5-7.7 Abs Lymphocytes 0.9 10^3/uL Low 1.0-4.8 Abs Monocytes 0.6 10^3/uL 0-0.8 Abs Eosinophils 0.1 10^3/uL 0-0.6 Abs Basophils 0 10^3/uL 0-0.2 Abs Nucleated RBC 0 10^3/uL Granulocyte % 52.9 % 38-83 Lymphocyte % 26.1 % 25-47 Monocyte % 17.1 % High 1-9 Eosinophil % 3.2 % 0-6 Basophil % 0.7 % 0-2 Nucleated Red Blood Cells % 0.2 Thiopurine Methyltransferase Genotyping 07/09/2016 TPMT Genotype Result 05/12 66 TPMT Interpretation See Comment 67 Reviewed By See Comment 68 Comp Metabolic Panel 07/09/2016 Sodium 139 mmol/L 133-145 Potassium 4.4 mmol/L 3.5-5.0 Chloride 102 mmol/L 101-111 Co2 Carbon Dioxide 33 mmol/L High 22-32 Anion Gap 4 mmol/L 2-11 Glucose 78 mg/dL 70-100 Blood Urea Nitrogen 11 mg/dL 6-24 Creatinine 0.58 mg/dL 0.51-0.95 BUN/Creatinine Ratio 19.0 8-20 Calcium 9.1 mg/dL 8.6-10.3 Total Protein 6.3 g/dL Low 6.4-8.9 Albumin 4.0 g/dL 3.2-5.2 Globulin 2.3 g/dL 2-4 Albumin/Globulin Ratio 1.7 1-3 Total Bilirubin 0.70 mg/dL 0.2-1.0 Alkaline Phosphatase 44 U/L 34-104 Alt 8 U/L 7-52 Ast 8 U/L Low 13-39 Egfr Non- 111.4 >60 Egfr 143.3 >60 69 CBC Auto Diff 07/09/2016 White Blood Count 2.4 10^3/uL Low 3.5-10.8 70 Red Blood Count 3.49 10^6/uL Low 4.0-5.4 Hemoglobin 10.9 g/dL Low 12.0-16.0 Hematocrit 33 % Low 35-47 Mean Corpuscular Volume 93 fL 80-97 Mean Corpuscular Hemoglobin 31 pg 27-31 Mean Corpuscular HGB Conc 34 g/dL 31-36 Red Cell Distribution Width 16 % High 10.5-15 Platelet Count 180 10^3/uL 150-450 Mean Platelet Volume 8 um3 7.4-10.4 Abs Neutrophils 1.3 10^3/uL Low 1.5-7.7 Abs Lymphocytes 0.7 10^3/uL Low 1.0-4.8 Abs Monocytes 0.3 10^3/uL 0-0.8 Abs Eosinophils 0.1 10^3/uL 0-0.6 Abs Basophils 0 10^3/uL 0-0.2 Abs Nucleated RBC 0 10^3/uL Granulocyte % 54.8 % 38-83 Lymphocyte % 29.2 % 25-47 Monocyte % 12.6 % High 1-9 Eosinophil % 2.7 % 0-6 Basophil % 0.7 % 0-2 Nucleated Red Blood Cells % 0 Laboratory test finding 07/09/2016 C Reactive Protein 1.07 mg/L < 5.00 71 Erythrocyte Sed Rate 15 mm/Hr High 0-14 CBC Auto Diff 06/21/2016 White Blood Count 3.5 10^3/uL 3.5-10.8 Red Blood Count 3.98 10^6/uL Low 4.0-5.4 Hemoglobin 12.3 g/dL 12.0-16.0 Hematocrit 37 % 35-47 Mean Corpuscular Volume 92 fL 80-97 Mean Corpuscular Hemoglobin 31 pg 27-31 Mean Corpuscular HGB Conc 34 g/dL 31-36 Red Cell Distribution Width 14 % 10.5-15 Platelet Count 245 10^3/uL 150-450 Mean Platelet Volume 7 um3 Low 7.4-10.4 Abs Neutrophils 1.6 10^3/uL 1.5-7.7 Abs Lymphocytes 1.4 10^3/uL 1.0-4.8 Abs Monocytes 0.4 10^3/uL 0-0.8 Abs Eosinophils 0 10^3/uL 0-0.6 Abs Basophils 0 10^3/uL 0-0.2 Abs Nucleated RBC 0 10^3/uL Granulocyte % 45.7 % 38-83 Lymphocyte % 39.3 % 25-47 Monocyte % 12.9 % High 1-9 Eosinophil % 1.4 % 0-6 Basophil % 0.7 % 0-2 Nucleated Red Blood Cells % 0.1 Laboratory test finding 06/10/2016 C Reactive Protein 2.07 mg/L < 5.00 72 Comp Metabolic Panel 06/10/2016 Sodium 134 mmol/L 133-145 Potassium 4.1 mmol/L 3.5-5.0 Chloride 103 mmol/L 101-111 Co2 Carbon Dioxide 26 mmol/L 22-32 Anion Gap 5 mmol/L 2-11 Glucose 70 mg/dL 70-100 Blood Urea Nitrogen 18 mg/dL 6-24 Creatinine 0.63 mg/dL 0.51-0.95 BUN/Creatinine Ratio 28.6 High 8-20 Calcium 8.4 mg/dL Low 8.6-10.3 Total Protein 6.4 g/dL 6.4-8.9 Albumin 3.9 g/dL 3.2-5.2 Globulin 2.5 g/dL 2-4 Albumin/Globulin Ratio 1.6 1-3 Total Bilirubin 1.00 mg/dL 0.2-1.0 Alkaline Phosphatase 42 U/L 34-104 Alt 8 U/L 7-52 Ast 10 U/L Low 13-39 Egfr Non- 101.3 >60 Egfr 130.3 >60 73 Laboratory test finding 06/10/2016 Erythrocyte Sed Rate 15 mm/Hr High 0- 14 Laboratory test finding 06/06/2016 Reference Lab Test See Comment 74 Urinalysis Profile 06/06/2016 Urine Color Yellow Urine Appearance Clear Urine Specific [place] 1.018 1.010-1.030 Urine pH 6.0 5-9 Urine Urobilinogen Negative Negative Urine Ketones Trace Negative Urine Protein Negative Negative Urine Leukocytes Negative Negative Urine Blood Negative Negative * * Negative 75 Urine Nitrite Negative Negative Urine Bilirubin Negative Negative Urine Glucose Negative Negative Comp Metabolic Panel 06/06/2016 Sodium 135 mmol/L 133-145 Potassium 4.0 mmol/L 3.5-5.0 Chloride 105 mmol/L 101-111 Co2 Carbon Dioxide 29 mmol/L 22-32 Anion Gap 1 mmol/L Low 2-11 Glucose 77 mg/dL 70-100 Blood Urea Nitrogen 10 mg/dL 6-24 Creatinine 0.71 mg/dL 0.51-0.95 BUN/Creatinine Ratio 14.1 8-20 Calcium 9.4 mg/dL 8.6-10.3 Total Protein 7.1 g/dL 6.4-8.9 Albumin 4.6 g/dL 3.2-5.2 Globulin 2.5 g/dL 2-4 Albumin/Globulin Ratio 1.8 1-3 Total Bilirubin 1.10 mg/dL High 0.2-1.0 Alkaline Phosphatase 53 U/L 34-104 Alt 8 U/L 7-52 Ast 13 U/L 13-39 Egfr Non- 88.2 >60 Egfr 113.5 >60 76 Laboratory test finding 06/06/2016 Creatine Kinase(CK) 50 U/L 10-223 CBC Auto Diff 06/06/2016 White Blood Count 2.7 10^3/uL Low 3.5-10.8 Red Blood Count 4.19 10^6/uL 4.0-5.4 Hemoglobin 12.9 g/dL 12.0-16.0 Hematocrit 39 % 35-47 Mean Corpuscular Volume 92 fL 80-97 Mean Corpuscular Hemoglobin 31 pg 27-31 Mean Corpuscular HGB Conc 33 g/dL 31-36 Red Cell Distribution Width 14 % 10.5-15 Platelet Count 245 10^3/uL 150-450 Mean Platelet Volume 7 um3 Low 7.4-10.4 Abs Neutrophils 1.4 10^3/uL Low 1.5-7.7 Abs Lymphocytes 0.8 10^3/uL Low 1.0-4.8 Abs Monocytes 0.5 10^3/uL 0-0.8 Abs Eosinophils 0.1 10^3/uL 0-0.6 Abs Basophils 0 10^3/uL 0-0.2 Abs Nucleated RBC 0 10^3/uL Granulocyte % 51.2 % 38-83 Lymphocyte % 27.6 % 25-47 Monocyte % 18.1 % High 1-9 Eosinophil % 1.9 % 0-6 Basophil % 1.2 % 0-2 Nucleated Red Blood Cells % 0.1 Laboratory test finding 06/06/2016 Erythrocyte Sed Rate 17 mm/Hr High 0- 14 C Reactive Protein 3.35 mg/L < 5.00 77 TSH (Thyroid Stim Horm) 1.40 mcIU/mL 0.34-5.60 Comp Metabolic Panel 04/09/2016 Sodium 137 mmol/L 133-145 Potassium 4.0 mmol/L 3.5-5.0 Chloride 102 mmol/L 101-111 Co2 Carbon Dioxide 29 mmol/L 22-32 Anion Gap 6 mmol/L 2-11 Glucose 85 mg/dL 70-100 Blood Urea Nitrogen 11 mg/dL 6-24 Creatinine 0.69 mg/dL 0.51-0.95 BUN/Creatinine Ratio 15.9 8-20 Calcium 8.9 mg/dL 8.6-10.3 Total Protein 6.8 g/dL 6.4-8.9 Albumin 4.0 g/dL 3.2-5.2 Globulin 2.8 g/dL 2-4 Albumin/Globulin Ratio 1.4 1-3 Total Bilirubin 0.80 mg/dL 0.2-1.0 Alkaline Phosphatase 42 U/L 34-104 Alt 7 U/L 7-52 Ast 12 U/L Low 13-39 Egfr Non- 91.6 >60 Egfr 117.8 >60 78 CBC Auto Diff 04/09/2016 White Blood Count 3.1 10^3/uL Low 3.5-10.8 79 Red Blood Count 3.97 10^6/uL Low 4.0-5.4 Hemoglobin 12.3 g/dL 12.0-16.0 Hematocrit 37 % 35-47 Mean Corpuscular Volume 93 fL 80-97 Mean Corpuscular Hemoglobin 31 pg 27-31 Mean Corpuscular HGB Conc 33 g/dL 31-36 Red Cell Distribution Width 14 % 10.5-15 Platelet Count 231 10^3/uL 150-450 Mean Platelet Volume 7 um3 Low 7.4-10.4 Abs Neutrophils 1.4 10^3/uL Low 1.5-7.7 Abs Lymphocytes 1.1 10^3/uL 1.0-4.8 Abs Monocytes 0.4 10^3/uL 0-0.8 Abs Eosinophils 0.1 10^3/uL 0-0.6 Abs Basophils 0 10^3/uL 0-0.2 Abs Nucleated RBC 0 10^3/uL Granulocyte % 46.7 % 38-83 Lymphocyte % 35.5 % 25-47 Monocyte % 13.9 % High 1-9 Eosinophil % 3.1 % 0-6 Basophil % 0.8 % 0-2 Nucleated Red Blood Cells % 0 Laboratory test finding 04/09/2016 C Reactive Protein 4.39 mg/L < 5.00 80 Erythrocyte Sed Rate 26 mm/Hr High 0-14 Laboratory test finding 03/29/2016 C Reactive Protein 4.59 mg/L < 5.00 81 Erythrocyte Sed Rate 29 mm/Hr High 0-14 82 CBC Auto Diff 03/29/2016 White Blood Count 4.3 10^3/uL 3.5-10.8 Red Blood Count 3.52 10^6/uL Low 4.0-5.4 Hemoglobin 11.2 g/dL Low 12.0-16.0 Hematocrit 33 % Low 35-47 Mean Corpuscular Volume 94 fL 80-97 Mean Corpuscular Hemoglobin 32 pg High 27-31 Mean Corpuscular HGB Conc 34 g/dL 31-36 Red Cell Distribution Width 14 % 10.5-15 Platelet Count 278 10^3/uL 150-450 Mean Platelet Volume 7 um3 Low 7.4-10.4 Abs Neutrophils 2.7 10^3/uL 1.5-7.7 Abs Lymphocytes 1.0 10^3/uL 1.0-4.8 Abs Monocytes 0.5 10^3/uL 0-0.8 Abs Eosinophils 0.1 10^3/uL 0-0.6 Abs Basophils 0 10^3/uL 0-0.2 Abs Nucleated RBC 0 10^3/uL Granulocyte % 62.4 % 38-83 Lymphocyte % 24.0 % Low 25-47 Monocyte % 10.9 % High 1-9 Eosinophil % 2.1 % 0-6 Basophil % 0.6 % 0-2 Nucleated Red Blood Cells % 0.1 Comp Metabolic Panel 03/29/2016 Sodium 137 mmol/L 133-145 Potassium 4.0 mmol/L 3.5-5.0 Chloride 103 mmol/L 101-111 Co2 Carbon Dioxide 29 mmol/L 22-32 Anion Gap 5 mmol/L 2-11 Glucose 84 mg/dL 70-100 Blood Urea Nitrogen 10 mg/dL 6-24 Creatinine 0.57 mg/dL 0.51-0.95 BUN/Creatinine Ratio 17.5 8-20 Calcium 9.0 mg/dL 8.6-10.3 Total Protein 6.5 g/dL 6.4-8.9 Albumin 4.0 g/dL 3.2-5.2 Globulin 2.5 g/dL 2-4 Albumin/Globulin Ratio 1.6 1-3 Total Bilirubin 1.10 mg/dL High 0.2-1.0 Alkaline Phosphatase 43 U/L 34-104 Alt 6 U/L Low 7-52 Ast 10 U/L Low 13-39 Egfr Non- 114.2 >60 Egfr 146.9 >60 83 Laboratory test finding 03/20/2016 C Reactive Protein 3.18 mg/L < 5.00 84 Laboratory test finding 02/23/2016 Erythrocyte Sed Rate 19 mm/Hr High 0- 14 C Reactive Protein 1.25 mg/L < 5.00 85 CBC Auto Diff 02/23/2016 White Blood Count 3.9 10^3/uL 3.5-10.8 Red Blood Count 3.62 10^6/uL Low 4.0-5.4 Hemoglobin 11.2 g/dL Low 12.0-16.0 Hematocrit 33 % Low 35-47 Mean Corpuscular Volume 91 fL 80-97 Mean Corpuscular Hemoglobin 31 pg 27-31 Mean Corpuscular HGB Conc 34 g/dL 31-36 Red Cell Distribution Width 16 % High 10.5-15 Platelet Count 234 10^3/uL 150-450 Mean Platelet Volume 7 um3 Low 7.4-10.4 Abs Neutrophils 2.3 10^3/uL 1.5-7.7 Abs Lymphocytes 1.2 10^3/uL 1.0-4.8 Abs Monocytes 0.3 10^3/uL 0-0.8 Abs Eosinophils 0.1 10^3/uL 0-0.6 Abs Basophils 0 10^3/uL 0-0.2 Abs Nucleated RBC 0 10^3/uL Granulocyte % 59.4 % 38-83 Lymphocyte % 29.5 % 25-47 Monocyte % 7.8 % 1-9 Eosinophil % 2.6 % 0-6 Basophil % 0.7 % 0-2 Nucleated Red Blood Cells % 0 Comp Metabolic Panel 02/23/2016 Sodium 139 mmol/L 133-145 Potassium 4.2 mmol/L 3.5-5.0 Chloride 104 mmol/L 101-111 Co2 Carbon Dioxide 28 mmol/L 22-32 Anion Gap 7 mmol/L 2-11 Glucose 99 mg/dL 70-100 Blood Urea Nitrogen 15 mg/dL 6-24 Creatinine 0.66 mg/dL 0.51-0.95 BUN/Creatinine Ratio 22.7 High 8-20 Calcium 9.2 mg/dL 8.6-10.3 Total Protein 6.5 g/dL 6.4-8.9 Albumin 4.2 g/dL 3.2-5.2 Globulin 2.3 g/dL 2-4 Albumin/Globulin Ratio 1.8 1-3 Total Bilirubin 0.80 mg/dL 0.2-1.0 Alkaline Phosphatase 38 U/L 34-104 Alt 8 U/L 7-52 Ast 11 U/L Low 13-39 Egfr Non- 96.4 >60 Egfr 124.0 >60 86 Laboratory test finding 12/20/2015 C Reactive Protein 1.76 mg/L < 5.00 87 Erythrocyte Sed Rate 21 mm/Hr High 0-14 88 Comp Metabolic Panel 12/20/2015 Sodium 138 mmol/L 133-145 Potassium 4.3 mmol/L 3.5-5.0 Chloride 104 mmol/L 101-111 Co2 Carbon Dioxide 28 mmol/L 22-32 Anion Gap 6 mmol/L 2-11 Glucose 88 mg/dL 70-100 Blood Urea Nitrogen 15 mg/dL 6-24 Creatinine 0.65 mg/dL 0.51-0.95 BUN/Creatinine Ratio 23.1 High 8-20 Calcium 9.4 mg/dL 8.6-10.3 Total Protein 6.9 g/dL 6.4-8.9 Albumin 4.3 g/dL 3.2-5.2 Globulin 2.6 g/dL 2-4 Albumin/Globulin Ratio 1.7 1-3 Total Bilirubin 0.90 mg/dL 0.2-1.0 Alkaline Phosphatase 37 U/L 34-104 Alt 10 U/L 7-52 Ast 12 U/L Low 13-39 Egfr Non- 98.1 >60 Egfr 126.2 >60 89 CBC Auto Diff 12/20/2015 White Blood Count 4.3 10^3/uL 3.5-10.8 Red Blood Count 3.98 10^6/uL Low 4.0-5.4 Hemoglobin 11.9 g/dL Low 12.0-16.0 Hematocrit 35 % 35-47 Mean Corpuscular Volume 88 fL 80-97 Mean Corpuscular Hemoglobin 30 pg 27-31 Mean Corpuscular HGB Conc 34 g/dL 31-36 Red Cell Distribution Width 16 % High 10.5-15 Platelet Count 265 10^3/uL 150-450 Mean Platelet Volume 7 um3 Low 7.4-10.4 Abs Neutrophils 2.2 10^3/uL 1.5-7.7 Abs Lymphocytes 1.5 10^3/uL 1.0-4.8 Abs Monocytes 0.4 10^3/uL 0-0.8 Abs Eosinophils 0.1 10^3/uL 0-0.6 Abs Basophils 0 10^3/uL 0-0.2 Abs Nucleated RBC 0.01 10^3/uL Granulocyte % 50.8 % 38-83 Lymphocyte % 36.2 % 25-47 Monocyte % 8.9 % 1-9 Eosinophil % 3.4 % 0-6 Basophil % 0.7 % 0-2 Nucleated Red Blood Cells % 0.1 Laboratory test finding 10/25/2015 Anti Ssa/Ro <0.2 U 90 Anti SSB LA <0.2 U 91 CBC Auto Diff 10/25/2015 White Blood Count 3.6 10^3/uL 3.5-10.8 Red Blood Count 3.63 10^6/uL Low 4.0-5.4 Hemoglobin 10.6 g/dL Low 12.0-16.0 Hematocrit 32 % Low 35-47 Mean Corpuscular Volume 89 fL 80-97 Mean Corpuscular Hemoglobin 29 pg 27-31 Mean Corpuscular HGB Conc 33 g/dL 31-36 Red Cell Distribution Width 19 % High 10.5-15 Platelet Count 262 10^3/uL 150-450 Mean Platelet Volume 7 um3 Low 7.4-10.4 Abs Neutrophils 2.4 10^3/uL 1.5-7.7 Abs Lymphocytes 0.8 10^3/uL Low 1.0-4.8 Abs Monocytes 0.3 10^3/uL 0-0.8 Abs Eosinophils 0.1 10^3/uL 0-0.6 Abs Basophils 0 10^3/uL 0-0.2 Abs Nucleated RBC 0 10^3/uL Granulocyte % 66.4 % 38-83 Lymphocyte % 22.3 % Low 25-47 Monocyte % 8.8 % 1-9 Eosinophil % 1.4 % 0-6 Basophil % 1.1 % 0-2 Nucleated Red Blood Cells % 0.1 Laboratory test finding 10/25/2015 C Reactive Protein 16.87 mg/L High < 5.00 92 Complement C3 110 mg/dL 75 - 175 93 Complement C4 30 mg/dL 14 - 40 94 Anti Double Stranded Dna AB <12.3 IU/mL 95 Rheumatoid Factor 118 IU/mL <15 96 Smooth Muscle Antibody Negative Negative 97 Scleroderma AB (SCL70) 10/25/2015 Scleroderma Ab <0.2 U 98 Laboratory test finding 10/25/2015 Rna Polymerase III Igg <10.0 U 99 Anti Nuclear Antibody 0.7 U 100 TSH (Thyroid Stim Horm) 0.81 ?IU/mL 0.34-5.60 101 Celiac Panel 10/25/2015 Tissue Transglutaminase IgA Ab <1.2 U/mL 102 Immunoglobulin A 138 mg/dL 61 - 356 Celiac Interpretation See Comment 103 Anca Panel For Vasculitis 10/25/2015 Myeloperoxidase AB <0.2 U 104 Proteinase 3 AB <0.2 U 105 Laboratory test finding 10/25/2015 Immunoglobulin E (Ige) 32.0 kU/L <= 214 106 Cyclic Citrullinated Pep Igg >250.0 U 107 Hla B27 10/25/2015 Hla B27 Negative 108 Hla B27 Interp See Comment 109 Laboratory test finding 10/25/2015 Lyme Disease PCR Negative Negative 110 Aso (Antistreptolysin O) Titer Negative IU/mL <200 Iu/mL 111 Cardiolipin Igg/Igm 10/25/2015 Phospholipid Ab IgM, S 11.6 MPL High 112 Phospholipid Ab IgG < 4.0 GPL 113 Laboratory test finding 10/25/2015 Creatine Kinase(CK) 41 U/L 10-223 114 Laboratory test finding 10/18/2015 C Reactive Protein 5.89 mg/L High < 5.00 115 Laboratory test finding 10/04/2015 Ferritin 87.9 ng/mL 11-307 Iron & Iron Binding 10/04/2015 Iron 90 g/dL 50-212 Capacity Unsaturated Iron Binding 238 g/dL Total Iron Binding Capacity 328 g/dL 250-450 % Iron Saturation 27 % 15-55 Laboratory test finding 10/04/2015 C Reactive Protein 8.69 mg/L High < 5.00 116 Comp Metabolic Panel 10/04/2015 Sodium 137 mmol/L 133-145 Potassium 4.4 mmol/L 3.5-5.0 Chloride 100 mmol/L Low 101-111 Co2 Carbon Dioxide 30 mmol/L 22-32 Anion Gap 7 mmol/L 2-11 Glucose 93 mg/dL 70-100 Blood Urea Nitrogen 11 mg/dL 6-24 Creatinine 0.74 mg/dL 0.51-0.95 BUN/Creatinine Ratio 14.9 8-20 Calcium 9.4 mg/dL 8.6-10.3 Total Protein 6.9 g/dL 6.4-8.9 Albumin 4.2 g/dL 3.2-5.2 Globulin 2.7 g/dL 2-4 Albumin/Globulin Ratio 1.6 1-3 Total Bilirubin 0.90 mg/dL 0.2-1.0 Alkaline Phosphatase 47 U/L 34-104 Alt 8 U/L 7-52 Ast 11 U/L Low 13-39 Egfr Non- 84.5 >60 Egfr 108.7 >60 117 CBC Auto Diff 10/04/2015 White Blood Count 4.4 10^3/uL 3.5-10.8 Red Blood Count 3.57 10^6/uL Low 4.0-5.4 Hemoglobin 10.7 g/dL Low 12.0-16.0 Hematocrit 33 % Low 35-47 Mean Corpuscular Volume 92 fL 80-97 Mean Corpuscular Hemoglobin 30 pg 27-31 Mean Corpuscular HGB Conc 33 g/dL 31-36 Red Cell Distribution Width 15 % 10.5-15 Platelet Count 319 10^3/uL 150-450 Mean Platelet Volume 7 um3 Low 7.4-10.4 Abs Neutrophils 2.8 10^3/uL 1.5-7.7 Abs Lymphocytes 1.0 10^3/uL 1.0-4.8 Abs Monocytes 0.4 10^3/uL 0-0.8 Abs Eosinophils 0.1 10^3/uL 0-0.6 Abs Basophils 0 10^3/uL 0-0.2 Abs Nucleated RBC 0.01 10^3/uL Granulocyte % 64.5 % 38-83 Lymphocyte % 22.9 % Low 25-47 Monocyte % 8.8 % 1-9 Eosinophil % 3.0 % 0-6 Basophil % 0.8 % 0-2 Nucleated Red Blood Cells % 0.1 1 Please check today 2 Please check today 3 Verbal to JOHN BARRAGAN RN by [email or web address] at 1155 on 10/30/17. Results read back accurately. 4 Because ethnic data is not always readily available, this report includes an eGFR for both -Americans and non- Americans. The National Kidney Disease Education Program (NKDEP) does not endorse the use of the MDRD equation for patients that are not between the ages of 18 and 70, are , have extremes of body size, muscle mass, or nutritional status, or are non- or non-. According to the [employer], irrespective of diagnosis, the stage of the disease is based on the level of kidney function: Stage Description GFR(mL/min/1.73 m(2)) 1 Kidney damage with normal or decreased GFR 90 2 Kidney damage with mild decrease in GFR 60-89 3 Moderate decrease in GFR 30-59 4 Severe decrease in GFR 15-29 5 Kidney failure <15 (or dialysis) 5 REFERENCE VALUE Cutoff: 500 6 REFERENCE VALUE Cutoff: 200 7 REFERENCE VALUE Cutoff: 100 8 REFERENCE VALUE Cutoff: 150 9 ADDITIONAL INFORMATION This report is intended for use in clinical monitoring or management of patients. It is not intended for use in employment-related testing. 10 REFERENCE VALUE Cutoff: 200 mg/L 11 Tylenol 3 12 Metabolite of codeine REFERENCE VALUE Cutoff: 100 13 Stefania Delatorre, MS Contin; Also a minor metabolite (10%) of codeine and can be seen in low concentrations (<2,000 ng/mL) with poppy seed ingestion. 14 Metabolite of morphine REFERENCE VALUE Cutoff: 100 15 Metabolite of heroin 16 Lortab, [place], Vicodin; Also a very minor metabolite of codeine and impurity (<1%) of oxycodone. 17 Metabolite of hydrocodone 18 Metabolite of hydrocodone 19 Dilaudid, Exalgo; Also a metabolite of hydrocodone and a minor (<5%) metabolite of morphine. 20 Metabolite of hydromorphone REFERENCE VALUE Cutoff: 100 21 Endocet, Percocet, Oxycontin 22 Metabolite of oxycodone 23 Numorphan, Opana; Also a metabolite of oxycodone. 24 Metabolite of oxymorphone REFERENCE VALUE Cutoff: 100 25 Metabolite of oxymorphone 26 Actiq, Duragesic, [place] 27 Metabolite of fentanyl 28 Demerol 29 Metabolite of meperidine 30 Narcan 31 Metabolite of naloxone REFERENCE VALUE Cutoff: 100 32 Dolophine 33 Metabolite of methadone 34 Darvon, Darvocet 35 Metabolite of propoxyphene 36 Tradol, Ultram, Ultracet 37 Metabolite of tramadol 38 Nucynta 39 Metabolite of tapentadol 40 Metabolite of tapentadol REFERENCE VALUE Cutoff: 100 41 Buprenex, Suboxone 42 Metabolite of buprenorphine 43 Metabolite of buprenorphine 44 Test detected the presence of hydrocodone and its metabolites (norhydrocodone and dihydrocodeine). Suspect use of hydrocodone within the past three days. Test detected the presence of grdxyzofibl-1-hyxx-glucuronide (metabolite of oxymorphone). Suspect use of oxymorphone within the past three days. ADDITIONAL INFORMATION This test was developed and its performance characteristics determined by [facility] in a manner consistent with CLIA requirements. This test has not been cleared or approved by the U.S. Food and Drug Administration. Test Performed by: [facility] [place] [id number] [place] [address] 45 Absolute neutropenia. Reviewed by Evelyn Dutton MD 46 Because ethnic data is not always readily available, this report includes an eGFR for both -Americans and non- Americans. The National Kidney Disease Education Program (NKDEP) does not endorse the use of the MDRD equation for patients that are not between the ages of 18 and 70, are , have extremes of body size, muscle mass, or nutritional status, or are non- or non-. According to the National Kidney Foundation, irrespective of diagnosis, the stage of the disease is based on the level of kidney function: Stage Description GFR(mL/min/1.73 m(2)) 1 Kidney damage with normal or decreased GFR 90 2 Kidney damage with mild decrease in GFR 60-89 3 Moderate decrease in GFR 30-59 4 Severe decrease in GFR 15-29 5 Kidney failure <15 (or dialysis) 47 No interferon-gamma response to M. tuberculosis antigens was detected. Infection with M. tuberculosis is unlikely. A single negative result does not exclude infection with M. tuberculosis. In patients at high risk for M.tuberculosis infection, a second test should be considered in accordance with the 2017 ATS/IDSA/CDC Clinical Practice Guidelines for Diagnosis of Tuberculosis in Adults and Children [Caridad HURST et. al. Clin. Infect. Dis. 2017;64(2):111-115]. 48 Test Performed by: [facility] [address] [place] [address] 49 Please check labs 2 days before follow up 50 Acute inflammation: >10.00 51 Acute inflammation: >10.00 52 Because ethnic data is not always readily available, this report includes an eGFR for both -Americans and non- Americans. The National Kidney Disease Education Program (NKDEP) does not endorse the use of the MDRD equation for patients that are not between the ages of 18 and 70, are , have extremes of body size, muscle mass, or nutritional status, or are non- or non-. According to the National Kidney Foundation, irrespective of diagnosis, the stage of the disease is based on the level of kidney function: Stage Description GFR(mL/min/1.73 m(2)) 1 Kidney damage with normal or decreased GFR 90 2 Kidney damage with mild decrease in GFR 60-89 3 Moderate decrease in GFR 30-59 4 Severe decrease in GFR 15-29 5 Kidney failure <15 (or dialysis) 53 Acute inflammation: >10.00 54 Because ethnic data is not always readily available, this report includes an eGFR for both -Americans and non- Americans. The National Kidney Disease Education Program (NKDEP) does not endorse the use of the MDRD equation for patients that are not between the ages of 18 and 70, are , have extremes of body size, muscle mass, or nutritional status, or are non- or non-. According to the National Kidney Foundation, irrespective of diagnosis, the stage of the disease is based on the level of kidney function: Stage Description GFR(mL/min/1.73 m(2)) 1 Kidney damage with normal or decreased GFR 90 2 Kidney damage with mild decrease in GFR 60-89 3 Moderate decrease in GFR 30-59 4 Severe decrease in GFR 15-29 5 Kidney failure <15 (or dialysis) 55 Desirable <150 Borderline high 150-199 High 200-499 Very High >500 56 Desirable <200 Borderline high 200-239 High >239 57 Low <40 Desirable: 40-60 High: >60 58 Desirable: <100 mg/dL Near Optimal: 100-129 mg/dL Borderline High: 130-159 mg/dL High: 160-189 mg/dL Very High: >189 mg/dL 59 Because ethnic data is not always readily available, this report includes an eGFR for both -Americans and non- Americans. The National Kidney Disease Education Program (NKDEP) does not endorse the use of the MDRD equation for patients that are not between the ages of 18 and 70, are , have extremes of body size, muscle mass, or nutritional status, or are non- or non-. According to the National Kidney Foundation, irrespective of diagnosis, the stage of the disease is based on the level of kidney function: Stage Description GFR(mL/min/1.73 m(2)) 1 Kidney damage with normal or decreased GFR 90 2 Kidney damage with mild decrease in GFR 60-89 3 Moderate decrease in GFR 30-59 4 Severe decrease in GFR 15-29 5 Kidney failure <15 (or dialysis) 60 Acute inflammation: >10.00 61 Please check in 1 month 62 Consistent with previous results on 07/19/16. 63 Because ethnic data is not always readily available, this report includes an eGFR for both -Americans and non- Americans. The National Kidney Disease Education Program (NKDEP) does not endorse the use of the MDRD equation for patients that are not between the ages of 18 and 70, are , have extremes of body size, muscle mass, or nutritional status, or are non- or non-. According to the National Kidney Foundation, irrespective of diagnosis, the stage of the disease is based on the level of kidney function: Stage Description GFR(mL/min/1.73 m(2)) 1 Kidney damage with normal or decreased GFR 90 2 Kidney damage with mild decrease in GFR 60-89 3 Moderate decrease in GFR 30-59 4 Severe decrease in GFR 15-29 5 Kidney failure <15 (or dialysis) 64 Acute inflammation: >10.00 65 Please check this week 66 TPMT *2, *3A, *3B, *3C, *4, *5, *8, and *12 were not detected. 67 This individual most likely has the *1/*1 genotype and normal TPMT metabolizer. However there is a low residual risk that a TPMT variant may be present which is not detected by this assay and which might affect the patient's response to thiopurine drugs. Clinical correlation is recommended. ADDITIONAL INFORMATION Direct analysis of the following TPMT (Genbank # [id number], build hg19) alleles is performed by a polymerase chain reaction (PCR)-based 5'-nuclease assay using fluorescently labeled detection probes: *2 (c.238G>C), *3A (c.460G>A and c.719A>G), *3B (c.460G>A), *3C (c.719A>G,) *4 (c.626-1G>A), *5 (c.146T>C), *8 (c.644G>A), and *12 (c.374C>T). TPMT*2, *3A, *3B, *3C, *4, and *5 are nonfunctional (null) alleles. TMPT*8 and *12 have reduced activity but retain some residual activity. If these eight alleles are not detected, the patient most likely has the *1/*1 genotype. However, this method may not detect all variants that result in altered TPMT activity. Therefore, absence of a detectable gene variant does not rule out the possibility that a patient has an altered TPMT metabolism due to other TPMT variants that cannot be detected with this method. Furthermore, when two or more gene variants are detected, the cis-/trans- status (whether the variants are on the same or opposite chromosomes) is not always known. Results are generally interpreted assuming the two variants are in trans (on opposite chromosomes) with the exception of the *3A allele as described below. There is a residual risk that other rarer alleles may be present which are not detected by this assay and which might affect the patient's response to thiopurine drugs. This genotyping method will not distinguish between a TPMT*1/*3A genotype, which is associated with an intermediate TPMT activity, and the rare TPMT*3B/*3C genotype (estimated 1:120,890), which is associated with low TPMT activity. This is because the *3A allele is a combination of the *3B and *3C variations in cis, and this assay cannot determine if the TPMT*3B and *3C variations are on the same or opposite chromosomes. At the discretion of the care provider, evaluation of enzyme activity can be done to definitively assign phenotype in this setting. ([facility] Test ID TPMT, Published name: Thiopurine Methyltransferase (TPMT), Erythrocytes using the specimen requirements for this test). Dosing guidance for thiopurines can be found in the CPIC guidelines www.pharmgkb.org/gene/PA356 for TPMT*2, *3A, *3B, *3C and *4. TPMT*5 is thought to function like a TPMT*2 so interpretations for the *5 allele are the same as that of a *2. TPMT*8 and *12 have reduced activity but do not have specific dosing guidelines available. An individualized report is generated for all genotypes. Since some adverse reactions to thiopurine drugs, including myelosuppression, are not always explained by TPMT, regular monitoring of complete blood count (CBC), liver function tests and other signs of toxicity should be considered. Inhibitors: Concurrent treatment with allopurinol might inhibit TPMT activity. Drugs that have been shown to inhibit TPMT activity include: naproxen, ibuprofen, ketoprofen, furosemide, sulfasalazine, mesalamine, olsalazine, mefenamic acid, thiazide diuretics, and benzoic acid inhibitors. CAUTIONS: Rare variants may be present that could lead to false negative or positive results. If results obtained do not match the clinical findings (phenotype), additional testing should be considered. Samples may contain donor DNA if obtained from patients who received heterologous blood transfusions or allogeneic blood or marrow transplantation. Results from samples obtained under these circumstances may not accurately reflect the recipient's genotype. For individuals who have received blood transfusions, the genotype usually reverts to that of the recipient within 6 weeks. For individuals who have received allogeneic blood or marrow transplantation, a pre-transplant DNA specimen is recommended for testing. This test was developed and its performance characteristics determined by [facility] in a manner consistent with CLIA requirements. This test has not been cleared or approved by the U.S. Food and Drug Administration. 68 RESULT: Ananth Martinez, Ph.D. Test Performed by: [place] [id number] Manager Cafe: Franc Gonzalez II, M.D., Ph.D. 69 Because ethnic data is not always readily available, this report includes an eGFR for both -Americans and non- Americans. The National Kidney Disease Education Program (NKDEP) does not endorse the use of the MDRD equation for patients that are not between the ages of 18 and 70, are , have extremes of body size, muscle mass, or nutritional status, or are non- or non-. According to the National Kidney Foundation, irrespective of diagnosis, the stage of the disease is based on the level of kidney function: Stage Description GFR(mL/min/1.73 m(2)) 1 Kidney damage with normal or decreased GFR 90 2 Kidney damage with mild decrease in GFR 60-89 3 Moderate decrease in GFR 30-59 4 Severe decrease in GFR 15-29 5 Kidney failure <15 (or dialysis) 70 Consistent with previous results on 06/21/16. 71 Acute inflammation: >10.00 72 Acute inflammation: >10.00 73 Because ethnic data is not always readily available, this report includes an eGFR for both -Americans and non- Americans. The National Kidney Disease Education Program (NKDEP) does not endorse the use of the MDRD equation for patients that are not between the ages of 18 and 70, are , have extremes of body size, muscle mass, or nutritional status, or are non- or non-. According to the National Kidney Foundation, irrespective of diagnosis, the stage of the disease is based on the level of kidney function: Stage Description GFR(mL/min/1.73 m(2)) 1 Kidney damage with normal or decreased GFR 90 2 Kidney damage with mild decrease in GFR 60-89 3 Moderate decrease in GFR 30-59 4 Severe decrease in GFR 15-29 5 Kidney failure <15 (or dialysis) 74 Procedure Result Units Ref Interval Amphetamines, S/P, screen Negative ng/mL Cutoff 30 Methamphetamine, S/P, screen Negative ng/mL Cutoff 30 Barbiturates, S/P, screen Negative ng/mL Cutoff 75 Benzodiazepines, S/P, screen Negative ng/mL Cutoff 75 Buprenorphine, S/P, screen Negative ng/mL Cutoff 1 Cannabinoids, S/P, screen Negative ng/mL Cutoff 30 Cocaine, S/P, Screen Negative ng/mL Cutoff 30 Methadone, S/P, screen Negative ng/mL Cutoff 40 Opiates, S/P, screen Negative ng/mL Cutoff 30 Oxycodone, S/P, screen Negative ng/mL Cutoff 30 Phencyclidine, S/P, Screen Negative ng/mL Cutoff 15 Drug Screen Comments, Serum or Plasma See Note Drug Screen Comments, Serum or Plasma: INTERPRETIVE INFORMATION: Drug Screen 9 Panel, Serum or Plasma - Immunoassay Screen with Reflex to Mass Spectrometry Confirmation/Quantitation 1. Methodology: Qualitative Immunoassay Screen 2. Drugs/Drug classes reported as "Positive" are automatically reflexed to mass spectrometry confirmation/quantitation testing. An immuncassay unconfirmed positive screen result may be useful for medical purposes but does not meet forensic standards. 3. The absence of expected drug(s) and/or drug metabolite(s) may indicate non-compliance, inappropriate timing of specimen collection relative to drug administration, poor drug absorption, or limitations of testing. The concentration at which the screening test can detect a drug or metabolite varies within a drug class. Specimens for which drugs or drug classes are detected by the screen are automatically reflexed to a second, more specific technology (mass spectrometry). The concentration value must be greater than or equal to the cutoff to be reported as positive. Interpretive questions should be directed to the laboratory. 4. For medical purposes only; not valid for forensic use. Test developed and characteristics determined by [facility] See Compliance Statement B: [employer] Test Performed by: [facility] [facility] [address] [place] [id number] [email or web address] Theodore Villagomez MD - Director of Laboratories --- 06/10/16 1417 --- Ref Lab Test previously reported as: See Comment Test Result Flag Unit RefValue See Comment See Comment Drug Screen 9 Panel, Serum or Plasma-Immunoassay Screen with Reflex to Mass Spectrometry Confirmation/Quantitation Testing is complete. Final report has been sent to the referring laboratory. Test Performed by: [facility] [address] [place] [address] 75 *Ascorbic acid is present which may interfere with detection of blood. 76 Because ethnic data is not always readily available, this report includes an eGFR for both -Americans and non- Americans. The National Kidney Disease Education Program (NKDEP) does not endorse the use of the MDRD equation for patients that are not between the ages of 18 and 70, are , have extremes of body size, muscle mass, or nutritional status, or are non- or non-. According to the National Kidney Foundation, irrespective of diagnosis, the stage of the disease is based on the level of kidney function: Stage Description GFR(mL/min/1.73 m(2)) 1 Kidney damage with normal or decreased GFR 90 2 Kidney damage with mild decrease in GFR 60-89 3 Moderate decrease in GFR 30-59 4 Severe decrease in GFR 15-29 5 Kidney failure <15 (or dialysis) 77 Acute inflammation: >10.00 78 Because ethnic data is not always readily available, this report includes an eGFR for both -Americans and non- Americans. The National Kidney Disease Education Program (NKDEP) does not endorse the use of the MDRD equation for patients that are not between the ages of 18 and 70, are , have extremes of body size, muscle mass, or nutritional status, or are non- or non-. According to the National Kidney Foundation, irrespective of diagnosis, the stage of the disease is based on the level of kidney function: Stage Description GFR(mL/min/1.73 m(2)) 1 Kidney damage with normal or decreased GFR 90 2 Kidney damage with mild decrease in GFR 60-89 3 Moderate decrease in GFR 30-59 4 Severe decrease in GFR 15-29 5 Kidney failure <15 (or dialysis) 79 Consistent with previous results on 03/31/16. 80 Acute inflammation: >10.00 81 Acute inflammation: >10.00 82 Please check labs today 83 Because ethnic data is not always readily available, this report includes an eGFR for both -Americans and non- Americans. The National Kidney Disease Education Program (NKDEP) does not endorse the use of the MDRD equation for patients that are not between the ages of 18 and 70, are , have extremes of body size, muscle mass, or nutritional status, or are non- or non-. According to the National Kidney Foundation, irrespective of diagnosis, the stage of the disease is based on the level of kidney function: Stage Description GFR(mL/min/1.73 m(2)) 1 Kidney damage with normal or decreased GFR 90 2 Kidney damage with mild decrease in GFR 60-89 3 Moderate decrease in GFR 30-59 4 Severe decrease in GFR 15-29 5 Kidney failure <15 (or dialysis) 84 Acute inflammation: >10.00 85 Acute inflammation: >10.00 86 Because ethnic data is not always readily available, this report includes an eGFR for both -Americans and non- Americans. The National Kidney Disease Education Program (NKDEP) does not endorse the use of the MDRD equation for patients that are not between the ages of 18 and 70, are , have extremes of body size, muscle mass, or nutritional status, or are non- or non-. According to the National Kidney Foundation, irrespective of diagnosis, the stage of the disease is based on the level of kidney function: Stage Description GFR(mL/min/1.73 m(2)) 1 Kidney damage with normal or decreased GFR 90 2 Kidney damage with mild decrease in GFR 60-89 3 Moderate decrease in GFR 30-59 4 Severe decrease in GFR 15-29 5 Kidney failure <15 (or dialysis) 87 Acute inflammation: >10.00 88 Please check this week 89 Because ethnic data is not always readily available, this report includes an eGFR for both -Americans and non- Americans. The National Kidney Disease Education Program (NKDEP) does not endorse the use of the MDRD equation for patients that are not between the ages of 18 and 70, are , have extremes of body size, muscle mass, or nutritional status, or are non- or non-. According to the National Kidney Foundation, irrespective of diagnosis, the stage of the disease is based on the level of kidney function: Stage Description GFR(mL/min/1.73 m(2)) 1 Kidney damage with normal or decreased GFR 90 2 Kidney damage with mild decrease in GFR 60-89 3 Moderate decrease in GFR 30-59 4 Severe decrease in GFR 15-29 5 Kidney failure <15 (or dialysis) 90 REFERENCE VALUE <1.0 (Negative) Test Performed by: [place] [address] Manager Cafe: Franc Gonzalez II, M.D., Ph.D. 91 REFERENCE VALUE <1.0 (Negative) Test Performed by: [place] [address] Manager Cafe: Franc Gonzalez II, M.D., Ph.D. 92 Acute inflammation: >10.00 93 Test Performed by: [place] [address] Manager Cafe: Franc Gonzalez II, M.D., Ph.D. 94 Test Performed by: [place] [address] Manager Cafe: Franc Gonzalez II, M.D., Ph.D. 95 REFERENCE VALUE <30.0 (Negative) Test Performed by: [place] [address] Manager Cafe: Franc Gonzalez II, M.D., Ph.D. 96 Test Performed by: [place] [address] Manager Cafe: Franc Gonzalez II, M.D., Ph.D. 97 Test Performed by: [place] [address] Manager Cafe: Franc Gonzalez II, M.D., Ph.D. 98 REFERENCE VALUE <1.0 (Negative) Test Performed by: [place] [address] Manager Cafe: Franc Gonzalez II, M.D., Ph.D. 99 REFERENCE VALUE <20.0 (Negative) Test Performed by: [place] [address] Manager Cafe: Franc Gonzalez II, M.D., Ph.D. 100 REFERENCE VALUE <=1.0 (Negative) Test Performed by: [place] [address] Manager Cafe: Franc Gonzalez II, M.D., Ph.D. 101 Please check this week 102 REFERENCE VALUE <4.0 (Negative) Test Performed by: [place] [address] Manager Cafe: Franc Gonzalez II, M.D., Ph.D. 103 Negative serology. Celiac disease unlikely. However, approximately 10% of patients with celiac disease are seronegative. Also, patients who are already adhering to a gluten-free diet may be seronegative. If celiac disease is highly clinically suspected, consider HLA-DQ typing. Test Performed by: [place] [address] Manager Cafe: Franc Gonzalez II, M.D., Ph.D. 104 REFERENCE VALUE <0.4 (Negative) 105 REFERENCE VALUE <0.4 (Negative) Test Performed by: [place] [address] Manager Cafe: Franc Gonzalez II, M.D., Ph.D. 106 Test Performed by: [place] [address] Manager Cafe: Franc Gonzalez II, M.D., Ph.D. 107 Interpretation: Strong Positive (>=60.0) REFERENCE VALUE <20.0 (Negative) Test Performed by: [place] [address] Manager Cafe: Franc Gonzalez II, M.D., Ph.D. 108 REFERENCE VALUE Not Applicable 109 RESULT: HLA-B27 antigen was not detected. ADDITIONAL INFORMATION Method: Flow Cytometry Performing Laboratory CLIA# [id number] Test Performed by: [place] [address] Manager Cafe: Franc Gonzalez II, M.D., Ph.D. 110 A negative result does not exclude infection with Borrelia burgdorferi. Serologic testing as per CDC guidelines may be indicated. ADDITIONAL INFORMATION Laboratory developed test. Test Performed by: [place] [address] Manager Cafe: Franc Gonzalez II, M.D., Ph.D. 111 Normal values may vary with age, season and geographic area. Titers above upper limits may be indicative of infection, however only a two dilution rise in titer is required to be considered significant. ASO titer will usually rise above upper limits within one week of exposure, increase to peak levels at 3-5 weeks and return to baseline level at 6-12 twelve months. 112 Interpretation: Borderline (10.0-14.9) REFERENCE VALUE <10.0 (Negative) 113 REFERENCE VALUE <10.0 (Negative) Test Performed by: [place] [address] Manager Cafe: Franc Gonzalez II, M.D., Ph.D. 114 Please check this week 115 Acute inflammation: >10.00 116 Acute inflammation: >10.00 117 Because ethnic data is not always readily available, this report includes an eGFR for both -Americans and non- Americans. The National Kidney Disease Education Program (NKDEP) does not endorse the use of the MDRD equation for patients that are not between the ages of 18 and 70, are , have extremes of body size, muscle mass, or nutritional status, or are non- or non-. According to the National Kidney Foundation, irrespective of diagnosis, the stage of the disease is based on the level of kidney function: Stage Description GFR(mL/min/1.73 m(2)) 1 Kidney damage with normal or decreased GFR 90 2 Kidney damage with mild decrease in GFR 60-89 3 Moderate decrease in GFR 30-59 4 Severe decrease in GFR 15-29 5 Kidney failure <15 (or dialysis) Procedures Date CPT Code Description Status 09/03/2017 17990 Nerve Conduction 07-08 Studies Completed 09/03/2017 61550 Needle Electromyography Complete, Five Or More Muscles Completed Studied 09/03/2017 91156 Needle Electromyography Each Extremity W/Related Completed Paraspinal Areas 12/24/201627693 Inject/Drain Joint/Bursa Major W/O US Completed Encounters Type Date Location Provider CPT E/M Dx Office Visit 10/30/2017 [facility] Cristofer Reeves M.D. 43116 M05.79 8:20a Of [employer] M79.7 R79.82 Z79.899 Office Visit 09/12/2017 4:00p Irasema Espinal M.D. 20390 G43.011 Services Of [employer] R20.2 Office Visit 08/28/2017 9:40a [facility] Cristofer Reeves 20110 M05.79 Of [employer] M.D. M79.7 R79.82 Z79.899 Office Visit 07/29/2017 10:00a [facility]/Irasema Espinal 60577 G43.011 Neurolog[facility] Of [employer] M.D. Office Visit 07/17/2017 2:40p [facility] Of Cristofer Reeves 68163 M05.79 [employer] M.D. M79.7 R79.82 Z79.899 Office Visit 07/01/2017 10:40a [facility] Cristofer Reeves 06341 M05.79 Of [employer] M.D. M79.7 R79.82 Z79.899 I73.00 Office Visit 06/20/2017 2:45p Irasema Espinal M.D. 98679 G43.719 Services Of [employer] R41.89 Office Visit 05/28/2017 9:00a [facility] Asyha Espinal M.D. 58628 G43.719 Services Of [facility] R41.89 R20.2 M05.79 Office Visit 04/30/2017 8:20a Rheumatology Services Cristofer Reeves 31129 M05.79 Of [facility] M.D. M79.7 R79.82 Z79.899 I73.00 Office Visit 04/16/2017 9:00a Rheumatology Services Of Nurse Visit 26451 M05.79 [facility] Office Visit 02/25/2017 9:20a [facility]ology Services Of Cristofer Reeves 02380 M05.79 [employer] M.D. M79.7 R79.82 Z79.899 F06.4 Z23 Z11.1 Office Visit 01/14/2017 4:00p [facility], 38090 M06.9 Pick Up Driver M.D. M79.7 M70.62 R79.82 Z79.899 Office Visit 12/24/2016 3:40p [facility] 30502 M06.9 Pick Up Driver M.D. M79.7 G43.009 M70.62 R79.82 Z79.899 Office Visit 10/03/2016 11:00a [facility] 48444 M06.9 Pick Up Driver M.D. Z79.899 R79.82 M79.7 Office Visit 08/19/2016 9:20a [facility], 48499 M06.9 Pick Up Driver M.D. Z79.899 R79.82 M79.7 M25.559 F06.4 Office Visit 07/08/2016 2:20p [facility] 01439 M06.9 Pick Up Driver M.D. Z79.899 R79.82 M79.7 R10.13 Office Visit 06/06/2016 10:20a [facility] 92578 M06.9 Pick Up Driver M.D. Z79.899 R79.82 M79.7 Office Visit 06/03/2016 2:00p [facility] Mindi Kc M.D. 80858 Z01.89 Of Pick Up Driver AT [place] Z86.718 Z85.43 M05.79 Office Visit 04/26/2016 11:10a [facility] Edwin Mcmullen 13503 L03.211 Infectious Diseases Timothy Tran Z79.899 Office Visit 04/01/2016 4:00p [facility] Mcmullen 89035 L03.211 Infectious Diseases Timothy Tran M27.2 Office Visit 03/29/2016 12:20p [facility] 19189 M06.9 Marley AllenDSheree R52 R79.82 Z79.899 Office Visit 03/20/2016 1:20p [facility] Mc[facility]ullen 93283 L03.211 Infectious Diseases Timothy Tran R68.84 Z79.899 R19.7 Office Visit 03/14/2016 [facility] Akilah, 16604 L03.211 4:00p Assoc,pc PRICE CLERK Hospitalists J45.909 R52 M05.9 Office Visit 03/14/2016 11:18a [facility] Edwin Tran, 64998 R68.84 Infectious Diseases Timothy M06.9 Z79.899 Office Visit 03/13/2016 9:58a [facility] 53172 R79.82 Of Pick Up Driver M.D. L03.211 M05.79 G89.29 Office Visit 03/12/2016 [facility] [place], 52743 L03.211 3:59p Assoc, PRICE CLERK Hospitalists J45.909 R52 M05.9 Office Visit 03/12/2016 9:57a [facility] 44249 R79.82 Of Pick Up Driver M.D. L03.211 M05.79 G89.29 Office Visit 02/22/2016 1:20p [facility] 42469 M05.79 Of Pick Up Driver M.D. R79.82 Z79.899 M79.7 R45.89 M26.603 C56.9 Office Visit 01/23/2016 11:20a [facility] 54307 M05.79 Of Pick Up Driver M.D. R79.82 Z79.899 R45.89 M79.7 Office Visit 01/02/2016 2:20p [facility] [place], 89954 M05.79 Of Marley Jeffries.D. R79.82 R76.0 Z79.899 M79.671 Office Visit 12/19/2015 4:20p [facility] Asherelyse 27773 M05.79 Of Marley Jeffries.D. R79.82 R76.0 Z79.899 Z85.22 Office Visit 11/21/2015 10:40a [facility] Asherelyse 22289 M05.79 Of Marley Jeffries.D. R79.82 R76.0 Z79.899 R68.2 Office Visit 10/24/2015 1:00p [facility] [place], 16400 R79.82 Of Marley Jeffries.Vicente. R76.0 L50.1 M06.4 H04.123 R68.2 T81.4xxD Z16.21 B95.2 Z79.899 Office Visit 10/17/2015 11:10a [facility]ullen 11011 T81.4xxD Infectious Alan Tran M.D. Z16.21 B95.2 Office Visit 10/03/2015 10:30a [facility]ullen 91690 T81.4xxD Infectious Alan Tran M.D. B95.2 Office Visit 09/15/2015 10:57a [facility]ullen 79174 T81.4xxA Infectious Alan Tran M.D. Z98.89 Office Visit 09/14/2015 1:51p [facility], Donna Green, GABRIEL 39341 R42 Hospitalists E86.0 R05 Office Visit 09/13/2015 10:42a [facility] Mc[facility]ullen 91133 T81.4xxA Infectious Diseases Timothy Tran Z98.89 Office Visit 09/13/2015 1:51p [facility], [place] [address] R42 Hospitalists E86.0 R05 Office Visit 09/12/2015 10:29a [facility] Mcmullen 90547 T81.4xxA Infectious Diseases Timothy Tran Z98.89 Office Visit 09/11/2015 12:06p [facility] Mc[facility]ullen 92953 T81.4xxA Infectious Alan Tran M.D. Office Visit 09/08/2015 11:34a [facility] Mcmullen 09128 T81.4xxA Infectious Diseases Timothy Tran I47.2 Z85.43 Plan of Care Future Appointment(s):01/08/2018 11:20 am - Cristofer Reeves M.D. at [facility]01/23/2018 10:00 am - Aysha Espinal M.D. at [facility]11/19/2017 - Cristofer Reeves M.D.M19.041 Primary osteoarthritis, right handZ79.899 Other snf (current) drug vpbldhzT60.79 Rheu arthritis w rheu factor mult site w/o org/sys ayugcxZ16.82 Elevated C-reactive protein (CRP)
--- OUTSIDE RECORDS SUMMARY | 2017-11-24 16:55 | XMS REPORT ---
:1970 External Reference #:[id number] Author Organization [facility] Address [address] [place] [address] Phone [phone] Care Team Providers Name Role Phone HCP/LW on file Primary Care Physician Unavailable Payers Type Date Identification Numbers Payment Provider Subscriber Medicaid Effective: 2017 Policy Number: [id number] Medicaid Shasta Martins PayID: [id number] [address] [place] [address] Problems Date Description Provider Status Onset: 06/20/2016 Rheumatoid arthritis Leni Kendall PA Active Onset: 06/20/2016 Sjogren's syndrome Leni Kendall PA Active Onset: 06/20/2016 Recurrent major depressive episodes Leni Kendall PA Active Onset: 06/20/2016 Atrophic vaginitis Leni Kendall, PA Active Onset: 06/20/2016 Anxiety state Leni Kendall, PA Active Onset: 06/20/2016 Obesity Leni Kendall PA Active Onset: 06/20/2016 Primary fibromyalgia syndrome Leni Kendall PA Active Onset: 06/20/2016 History of malignant neoplasm of ovary Leni Kendall PA Active Onset: 06/20/2016 Conduction disorder of the heart Leni Kendall PA Active Onset: 07/11/2016 Gallstone Leni Kendall PA Active Onset: 11/06/2016 Vitamin B-complex deficiency Leni Kendall, PA Active Onset: 11/06/2016 Bilateral carpal tunnel syndrome Leni Kendall, PA Active Onset: 02/27/2017 Migraine without aura, not refractory Leni Kendall PA Active Family History Date Family Member(s) Problem(s) Comments Father Allergic Rhinitis Father Hypertension Father Hypercholesterolemia Father Obesity Mother Aneursym Brain Mother due to Aneurysm Brain () Mother Diabetes, Nos Mother Hypertension Mother Hypercholesterolemia Mother Obesity Second Son Seizure Disorder First Brother Diabetes, Nos First Brother Hypertension First Brother Hypercholesterolemia First Brother Obesity Maternal Grandmother Cancer Brain Maternal Grandmother Stroke Paternal Uncles Diabetes, Nos Paternal Aunts Obesity Maternal Aunts Cancer Social History Type Date Description Comments Education Highest Level Completed College Marital Status Marital Status Significant Other Lives With Boyfriend and his children Lives With Children Smoke-Free Home is smoke-free Occupation [employer] Work Status Not Currently Working last 2004 Cigarette Use Denies Cigarette Use ETOH Use Consumes 1 glass of wine per day Recreational Drug Use Marijuana occasional Daily Caffeine Consumes on average 3 cups of coffee per day Exercise Type/Frequency Exercises rarely Sun Exposure Uses sunscreen Seat Belt/Car Seat Seat Belt Use - Yes Guns in Home No Smoke Alarms Yes smoke alarm Currently Active Patient is currently sexually active Contraceptive Methods Vasectomy Age 1st Drain 26 Years Old Allergies, Adverse Reactions, Alerts Date Description Reaction Status Severity Comments 06/20/2016 Penicillin Urticaria active Moderate to Severe 06/20/2016 Sulfa Urticaria active Moderate to Severe 06/20/2016 Keflex Urticaria active Moderate to Severe 06/20/2016 Gadolidium Urticaria active 06/20/2016 Vancomycin red man syndrome active Moderate Medications Medication Date Status Form Strength Qnty SIG Indications Ordering Provider Cetirizine 10/30 Active Tablets ER 5-120mg 60tab 1 tab po J30.9 Sopchak , HCL/Pseudoephedr /2017 12HR s bid prn Bernyjordana gaitan HCL ER D.O. Montelukast 10/28 Active Tablets 10mg 30tab 1 tab by J30.9 Silcoff, Sodium /2017 s mouth every Hermann, day M.D. Gabapentin 10/27 Active Capsules 300mg 90cap 1 po in Silcoff, /2017 s a.m., 1 po Hermann, in M.D. afternoon, 3 po QHS Kevzara 10/27 Active Soln 200mg/1.1 1 inj every Prefill 4ML 2 weeks Syringe Nitro-bid 05/26 Active Ointment 2% Slow-Mag 02/[address] 71.5-119m 60tab 2 tabs po G43.009 Silcoff, /2017 g s daily Timothy Mccrary Duloxetine HCL 02/[address] 60mg take one Part capsule by mouth every day for mood 3ML Luer-Cassandra 11/06 Active Misc 21G X 1" 12uni use for b12 Silcoff, Syringe 3 ML ts injections Hermann, X 1" once M.D. monthly Cyanocobalamin 11/06 Active Solution 1000mcg/M 1unit Inject 1ML Silcoff L s Intramuscul khoi Mccrary Every M.D. 4WKS Leflunomide 08/19 Active Tablets 20mg 30tab Take One By s Mouth Every Day Epipen 2-Alan 06/20 Active Solution 0.3mg/0.3 2unit use as Hektor Auto-Inject ML s directed PETER Farrar for anaphylaxis Xopenex HFA 06/20 Active Aerosol 45mcg/Act 15gm 2 puffs Silcoff four times Hermann a day as M.DSheree needed Premarin 06/20 Active Cream 0.625mg/G 30gm 0.5g by way N95.2 Hek M of vagina PETER Farrar 1x/week for vaginal dryness Plaqenil Active 200mg 2 daily Cyclobenzaprine Active Tablets 5mg 1 tab daily Unknown Pilocarpine HCL Active Tablets 5mg 1 tab qid Vitamin D Active Capsules [id number] 12cap 1 cap by Silcoff, (Ergocalciferol) s mouth madelyn Mccrary M.D. Lorazepam Active Tablets 0.5mg 1-2 tabs by mouth daily as needed for anxiety MDD=2 Trazodone HCL Active Tablets 50mg take 1 tablet by mouth daily at bedtime for trouble sleeping Flovent HFA Active Aerosol 110mcg/Ac 12gm 2 puffs Silcoff t 2x/day Hermann (gargle M.D. after use) [facility] Iron Active 45mg 1 tab tid Gabriela-C Active Tablets 1000mg 1 tab tid Multivitamin 00 Active Tablets 1 by mouth Unknown Adult /0000 every day Hydrocodone-Acet 00 Active Tablets 7.5-325mg 1 by mouth Unknown aminophen /0000 every 4 hours as needed for breakthroug h pain Oxymorphone Active bid Unknown / Sammie-D 12 10/28 Hx Tablets ER 60-120mg 60tab 1 tab by J30.9 Jean-Paul, Hour Allergy 12HR s mouth twice Hermann, Congestion - a day as M.D. 10/30 needed Fluticasone 05/27 Hx Suspension 50mcg/Act 15.80 2 sprays H92.02 Lauracomanuel , 0ml into each Hermann, - nostril M.D. 10/27 once daily for nasal congestion and ear pain Humira 05/26 Hx Unknown - 10/27 Avelox 03/12 Hx Tablets 400mg 10tab 1 tab by J01.90 Jean-Paul, s mouth daily Hermann, - x 10 days M.D. 03/12 Levofloxacin 03/12 Hx Tablets 500mg 10tab 1 tab by J01.90 Jean-Paul, s mouth daily Hermann, - x10 days M.D. 05/26 Lyrica 02/26 Hx Capsules 100mg 1 by mouth daily - 05/26 Bupropion HCL ER 10/03 Hx Tablets ER 150mg 30tab 1 by mouth F33.9 Faiza (XL) 24HR s every day PETER Farrar - 02/26 Hydromorphone 08/30 Hx Tablets 2mg 28tab Take 1 Unknown s Tablet By - Mouth Every 11/05 6 Hours as Needed For Chronic Pain Bupropion HCL ER 07/16 Hx Tablets ER 300mg 30tab take 1 F33.9 Faiza (XL) 24HR s tablet PETER Farrar - every 10/03 Sammie Allergy 06/20 Hx Tablets 180mg 30tab 1 tab by Jean-Paul, s mouth every Hermann, - day as M.D. 10/28 needed for allergy Bupropion HCL ER 06/20 Hx Tablets ER 150mg 30tab 1 tab by F33.9 Faiza, (XL) 24HR s mouth every PETER Farrar - day 07/16 Rituxan Hx Solution 100mg/10M 2 infusions Unknown /0000 L 2 weeks - apart; 11/05 repeat in months. Methotrexate 00/ Hx Solution 50mg/2ML 0.8mL Unknown Sodium (PF) /0000 q7days - 07/15 Gabapentin Hx Capsules 300mg 90cap 1 capsule Hektor, /0000 s three times PETER Farrar - daily 02/26 Folic Acid Hx Tablets 1mg 1 by mouth Unknown / every day - 10/27 Duloxetine HCL Hx Caps DR 90mg 1 by mouth Unknown Part twice daily - 02/27 Ondansetron HCL Hx Tablets 8mg 1 tab daily Unknown / prn nausea - 10/27 Hydroxyzine HCL Hx Tablets 25mg 2 tab po Unknown / QHS - 07/15 Buspirone HCL Hx Tablets 5mg take one tablet by - mouth twice 09/04 Levalbuterol Hx Aerosol 45mcg/Act prn Unknown Tartrate /0000 - 06/20 Aspirin Adult Hx Tablets DR 81mg 1 daily Unknown Low Strength / - 05/26 Morphine Sulfate Hx Tablets 15mg bid Unknown / - 08/30 Immunizations CPT Code Status Date Vaccine Lot # [id number] Given 09/26/2016 Adacel or Boostrix, TDaP [id number] Vital Signs Date Vital Result Comment 10/28/2017 BP Systolic 132 mmHg BP Diastolic 76 mmHg Weight 237.00 lb 05/27/2017 BP Systolic 136 mmHg BP Diastolic 70 mmHg Body Temperature 98.3 F Weight 229.00 lb 03/12/2017 BP Systolic 126 mmHg BP Diastolic 80 mmHg Body Temperature 98.4 F 02/27/2017 BP Systolic 125 mmHg BP Diastolic 75 mmHg Weight 218.00 lb with shoes 11/06/2016 BP Systolic 126 mmHg BP Diastolic 84 mmHg Weight 220.00 lb 09/26/2016 BP Systolic 110 mmHg BP Diastolic 70 mmHg Body Temperature 97.8 F 09/04/2016 BP Systolic 110 mmHg BP Diastolic 78 mmHg Weight 217.00 lb w/shoes 07/16/2016 BP Systolic 116 mmHg BP Diastolic 82 mmHg Weight 211.00 lb 06/20/2016 BP Systolic 132 mmHg BP Diastolic 82 mmHg Height 63 inches 5'3" Weight 208.00 lb BMI (Body Mass Index) 36.8 kg/m2 Results Test Date Test Result H/L Range Note Quantiferon Gold TB 07/28/2017 QuantiFERON-Tb Gold Plus Negative Negative 1 TB1 Ag minus Nil Result 0.53 IU/mL TB2 Ag minus Nil Result 0.33 IU/mL TB Mitogen minus Nil Result > 10.00 IU/mL TB Nil Result 4.98 IU/mL 2 Comp Metabolic Panel 07/28/2017 Sodium 136 mmol/L [...] Egfr Non- 92.3 >60 Egfr 118.8 >60 3 Laboratory test finding 07/28/2017 C Reactive Protein 12.40 mg/L High < 5.00 4 CBC Auto Diff 07/28/2017 White Blood Count [...] Blood Cells % 0.2 Laboratory test finding 07/28/2017 Erythrocyte Sed Rate 20 mm/Hr High 0- 14 5 CBC Auto Diff 11/25/2016 White Blood Count [...] Egfr Non- 96.0 >60 Egfr 123.5 >60 6 Laboratory test finding 11/19/2016 Magnesium 1.7 mg/dL Low 1.9-2.7 7 C Reactive Protein 5.44 mg/L High < 5.00 8 Laboratory test finding 07/16/2016 Cytology SEE RESULT BELOW 9 Human Papilloma Virus Rna Negative Negative 10 1 No interferon-gamma response to M. tuberculosis antigens was detected. Infection with M. tuberculosis is unlikely. A single negative result does not exclude infection with M. tuberculosis. In patients at high risk for M.tuberculosis infection, a second test should be considered in accordance with the 2017 ATS/IDSA/CDC Clinical Practice Guidelines for Diagnosis of Tuberculosis in Adults and Children [Lewinscarolinan DM et. al. Clin. Infect. Dis. 2017;64(2):111-115]. 2 Test Performed by: [facility] [address] [place] [address] 3 Because ethnic data is not always readily [...] 15-29 5 Kidney failure <15 (or dialysis) 4 Acute inflammation: >10.00 5 Please check labs 2 days before follow up 6 Because ethnic data is not always readily [...] 15-29 5 Kidney failure <15 (or dialysis) 7 Please check in 1 month 8 Acute inflammation: >10.00 9 SEE RESULT BELOW Name: SHASTA MARTINS : [address]: Leni BARNEY Acct: [id number] Unit: [id number] AGE: 46 Location: [facility] Re07/16/16 SEX: F Status: REG REF SPEC: [id number] JAMAR: 07/16/16-1153 [facility] [address]: Leni Kendall RPA-C REQ: [id number] RECD: 07/16/16-183 STATUS: SOUT _ ORDERED: IMAGE ANALYSIS, HPV/Thin Prep COMMENTS: [id number] FINAL DIAGNOSIS Negative for Intraepithelial lesion or Malignancy A. Ectocervical/Endocervical Specimen Adequacy: Satisfactory of evaluation Transformation zone component identified Patient Information: HPV: High risk HPV RNA testing regardless of pap results. Actual Specimen Date: 07/16/16 LMP If Unknown: few yrs ago Spec Date if unknown: 2014 ?: N Post Menopausal?: Y Hysterectomy?: N Previous Abnormal Pap Smears?:N Date Time Test Result Flag (u) Normal Range 07/16/16 1153 HPV RNA Negative Negative The high-risk HPV types detected by the assay include: 16, 18, 31, 33, 35, 39, 45, 51, 52, 56, 58, 59, 66, and 68. Signed (signature on file) JOHN Cruz (ASCP) 07/17 1823 This Pap test was evaluated with the assistance of the iCents.netPrep Test Imaging System. Due to cytologic findings at the embedded developer microscope, comprehensive manual rescreening by a Aircraft Mechanic Armament may be required. The Pap Smear is a screening test designed to aid in the detection of premalignant and malignant conditions of the uterine cervix. It is not a diagnostic procedure and should not be used as the sole means of detecting cervical cancer. Both false- positive and false- negative reports do occur. Depending on your risk status, a Pap smear should be obtained and evaluated every 1-3 years. END OF REPORT * ML=Testing performed at Main Lab DEPARTMENT OF PATHOLOGY, [address] [place] [address] Spenser Santos M.D. Director [facility] # [id number] RUN DATE: 07/17/16 [facility] LAB LIVE PAGE 1 Patient: GERONIMO MARTINSRd Vaca [id number] (Continued) 10 The high-risk HPV types detected by the assay include: 16, 18, 31, 33, 35, 39, 45, 51, 52, 56, 58, 59, 66, and 68. Procedures Date CPT Code Description Status Comment 08/10/2016 Mammogram Completed 2017:negative Encounters Type Date Location Provider CPT E/M Dx Office Visit 10/28/2017 2:50p [place] [address] J30.9 M06.9 G43.009 Office Visit 05/27/2017 11:15a Main Office Hermann Jeong M.D. 21310 H92.02 M06.9 Office Visit 03/12/2017 9:20a [place] [address] J01.90 Office Visit 02/27/2017 9:25a [place] [address] M06.9 M79.7 G43.009 F33.9 F41.9 Z11.1 Office Visit 11/06/2016 9:20a [place] [address] M06.9 M79.7 M35.00 E53.8 G56.03 Office Visit 09/26/2016 3:55p [place] [address] S91.331A Z23 Z41.8 W45.0xxA Office Visit 09/04/2016 9:20a [place] [address] F33.9 M06.9 M35.00 M79.7 Office Visit 07/16/2016 10:05a [place] [address] Z00.00 Z12.4 Z12.31 N95.2 Z85.43 F33.9 M06.9 M35.00 Office Visit 06/20/2016 1:15p [place] [address] M06.9 F33.9 M35.00 N95.2 F41.9 Z85.43 I49.9 Plan of Care 10/28/2017 - Leni Kendall PAJ30.9 Allergic rhinitis, unspecifiedNew Medication :Montelukast Sodium 10 mgAllegra-D 12 Hour Allergy & Congestion 60-120 mgComments:Switch Sammie to Sammie-D and add Singulair. Recheck if sx not improving.M06.9 Rheumatoid arthritis, unspecifiedComments:Seeing Dr. Reeves ( police or patrol park officer), who is managing medications. Pt currently on Kevzara.G43.009 Migraine w/o aura, not intractable, w/o status migrainosusComments:Managed by Dr. Espinal - pt is now getting Botox injections.
--- OUTSIDE RECORDS SUMMARY | 2017-11-24 16:56 | XMS REPORT ---
:1970 External Reference #:[id number] Author Organization [email or web address] Address [address] [place] [address] [place] [address] Phone [phone] Care Team Providers Name Role Phone Leni Kendall PA Primary Care Physician Unavailable Payers Type Date Identification Numbers Payment Provider Subscriber Commercial Effective: Policy Number: [id number] Dashawn Martins 2017 Group Number: [id number] [address] PayID: [id number] [place] [address] Medigap Part B Effective: 2017 Policy Number: [id number] Medicaid Shasta Martins Expires: 2017 Group Name: 1 1 [address] PayID: [id number] [place] [address] Problems Date Description Provider Status Onset: 03/09/2016 [...] Form Strength Qnty SIG Indications Ordering Provider Cimzia Starter Kit 10/30 Active Kit 6X 200 9unit inject M05.79 mg/ML s 400mg under Lala, the skin at M.D. weeks 0, 2, and 4 then 200mg sq every 2 weeks, to start 2 weeks after your last Kevzara Neoprene Patella 08/28 Active Misc 2unit use daily Cristofer Knee Support/Large s for the Lala, left knee M.D. for stabilizati on Gabapentin 07/29 Active Capsules 300mg 150ca taper up to G43.719 ps 1 by mouth Cowdery, in am, 1 at M.D. noon, and 3 at bedtime. Oxymorphone HCL ER 07/01 Active Tablets 5mg 60tab take one M06.9 ER 12HR s capsule/tab Lala, let by M.D. mouth twice daily Nitro-bid 04/30 Active Ointment 2% 30uni apply small M05.79 ts amount to Lala, webs of M.D. digits as needed for attack of raynaud's Duloxetine HCL 04/[address] 60mg 30cap take 1 Part s capsule Lala, every day M.D. Hydrocodone-Acetam 10/03 Active Tablets 7.5-325mg 60tab take one to M06.9 Cristofer inophen s 1.5 tabs a Lala, day as M.D. needed, breakthroug h pain Systane 08/29 Active Solution 0.4-0.3% 30uni apply twice H16.221 Cristofer Preservative Free ts daily for Lala, dry eyes M.D. Cane/Adjustable/Al 08/19 Active Misc 1unit please use M79.7 Cristofer uminum/Round s daily as Lala, Handle needed for M.D. support of joints with a cane Mattress Cover 08/19 Active Misc 1unit Use for M79.7 s support Timothy Reeves Leflunomide 08/19 Active Tablets 20mg 60tab Take One By s Mouth Every Lala, Day M.DSheree Trazodone HCL 08/19 Active Tablets 50mg 30tab Take One M25.559 s Tablet By Lala Mouth AT M.D. Bedtime. as Needed For Insomnia Splint Wrist 07/12 Active Misc 2unit use at Cristofer Brace/Left-Right/R s night and Lala eversible during the M.D. day if working with hands Wrist Splint 07/08 Active Misc 2unit use daily M79.7 s to help Lala with Timothy numbness and tingling in the right and left hand BD TB Syringe 06/10 Active 4unit To Be Used Cristofer 27GX1/2" s With MTX Lala, Injections M.D. Once Weekly Ativan 03/08 Active Tablets 0.5mg 60tab take 1 or 2 F06.4 s tabs daily Lala, as needed M.D. for anxiety Cyclobenzaprine 02/21 Active Tablets 5mg 30tab take 1 M26.603 s tablet by Lala, mouth at M.D. bedtime as needed for muscle spasms Voltaren 01/01 Active Gel 1% 200gm apply 2 M79.641 grams twice Lala, daily as M.D. needed for pain to the hands BD 1ML Tuberculin 12/19 Active Misc 27G X 15uni to be used Cristofer Syringe/Safetyglid 12" 1 ML ts with mtx Lala, e TB Needle injections M.D. 27GX1/2" once weekly Salagen 11/29 Active Tablets 5mg 180ta Take One By bs Mouth In Lala, The M.D. Morning, One AT Noon, One AT Dinner Time And One AT Bedtime Hydroxychloroquine 11/01 Active Tablets 200mg 180ta 1 tabs by Cristofer Reardon bs mouth twice Lala, a day M.DSheree Xopenex HFA 00/00 Active Aerosol 45mcg/Act 15gm 2 three Unknown /0000 times a day as needed Cyanocobalamin Active Solution 1000mcg/M 1 Unknown /0000 L milliliters intramuscul ar [id number] Slow Fe Active Tablets 142(45Fe) 30tab 1 by mouth Unknown /0000 ER mg s every day Flovent HFA Active Aerosol 110mcg/Ac 2 puffs Unknown /0000 t twice daily Fexofenadine HCL Active Tablets 180mg 1 by mouth Mona-H / daily Leni gutierrez PA Epipen 2-Alan Active Solution 0.3mg/0.3 2unit as needed Mona- Auto-Inje ML s as directed josh gutierrze PA Premarin Active Cream 0.625mg/G use1 Unknown /0000 M applicator intavaginal 2x per week or as directed Vitamin D3 Active Capsules [id number] one by Unknown /0000 mouth once weekly Acetaminophen Active Tablets 500mg 2 tabs 3 Unknown Extra Strength /0000 times daily as needed for pain Slow-Mag Active Tablets 71.5-119m 30tab 2 by mouth Unknown /0000 DR g s every day Multi Complete Active Capsules 30cap 1 by mouth Unknown /0000 s every day Botox Active Solution 100Unit for Unknown /0000 Rec headaches Montelukast Sodium Active Tablets 10mg 1 by mouth Unknown /0000 every day Prednisone 10/20 Hx Tablets 10mg 30tab take 4 tabs s by mouth Lala, - daily for 2 M.D. 10/30 days then tabs daily for 2 days then 2 tabs for 2 days then 1 tab for 2 days then d/c Medrol 08/28 Hx TBPK 4mg 21uni take as ts directed Lala, - until M.D. 09/11 finished a medrol dose pack Kevzara 07/29 Hx Soln 200mg/1.1 6.84m sq every 2 M05.79 Prefill 4ML l weeks Lala, - Syringe M.D. 10/30 Orencia Clickject 07/17 Hx Solution 125mg/ml 4unit inject M05.79 Auto-Inje s contents of Lala, - ct one syringe M.D. 07/21 under the skin every week Prednisone 07/08 Hx Tablets 10mg 30tab take 4 tabs s by mouth Lala, - daily for 2 M.D. 07/28 days then tabs daily for 2 days then 2 tabs for 2 days then 1 tab for 2 days then d/c Gabapentin 05/28 Hx Capsules 100mg 270ca 3 by mouth G43.719 Aysha ps three times Cowdery, - a day M.D. 07/29 Lyrica 03/31 Hx Capsules 50mg 30cap take one s capsule/tab Lala, - let daily M.D. 04/30 by mouth (in addition to the 100mg capsule at night for a total of 150mg per day) Humira Pen 03/18 Hx PNKT 40mg/0.8M 6unit inject 40mg M05.79 L s subcutaneou Lala, - sly every M.D. 07/29 other Duloxetine HCL 03/[address] 30mg 60cap please take M05.79 Part s 1capusule Lala, - by mouth M.D. 05/27 (along with the 60 mg) daily Cymbalta 02/[address] 30mg 60cap 2 daily M05.79 Part s ongoing Lala, - M.D. 03/12 Actemra 01/27 Hx Soln 162mg/0.9 4unit inject Prefill ML s 162mg Lala, - Syringe subcutaneou M.D. 03/18 sly week Oxymorphone HCL ER 01/14 Hx Tablets 7.5mg 60tab take one M06.9 ER 12HR s capsule/tab Lala, - let by M.D. 07/01 mouth twice daily Lyrica 01/02 Hx Capsules 100mg 30cap one capsule M79.7 s by mouth at Lala, - bedtime M.D. 04/30 (along with /2017 50 mg dose for a total dose of 150 mg) Oxymorphone HCL ER 12/24 Hx Tablets 10mg 60tab Take one M06.9 ER 12HR s capsule/tab Lala, - let by M.D. 01/14 mouth twice daily Stop the 5mg dose, avoid with driving Lyrica 12/24 Hx Capsules 75mg 60cap M79.7 s Lala, - M.D. 01/02 Magnesium-Oxide 12/07 Hx Tablets 400(241.3 180ta take one mg) mg bs capsule/tab Lala, - let by M.D. 07/28 mouth twice daily Oxymorphone HCL ER 08/30 Hx Tablets 5mg 60tab take one M06.9 ER 12HR s capsule/tab Lala, - let by M.D. 12/24 mouth twice daily Restasis 08/19 Hx Emulsion 0.05% 30uni instill one H16.221 ts drop of Lala, - restasis M.D. 08/29 ophthalmic emulsion twice a day in each eye approximate ly 12 hours apart Leflunomide 07/19 Hx Tablets 10mg 30tab take one s capsule/tab Lala, - let daily M.D. 08/19 by mouth Butrans 07/17 Hx Patches 10mcg/HR 4unit topical M06.9 Weekly s every 7 Lala, - days (she M.D. 10/03 Morphine) Morphine Sulfate 07/10 Hx Tablets 15mg 14tab 1 by mouth ER s twice a day Lala, - M.D. 07/17 Imuran 07/08 Hx Tablets 50mg 60tab take two s tablets by Lala, - mouth every M.D. 07/08 day Butrans 06/06 Hx Patches 10mcg/HR 4unit topical M06.9 Weekly s every 7 Lala, - days M.D. 07/08 Dilaudid 06/06 Hx Tablets 2mg 28tab take 1 by M06.9 s mouth every Lala, - 6 hours as M.D. 10/03 needed for chronic pain Levofloxacin 04/01 Hx Tablets 500mg 21tab 1 by mouth M27.2 s every day D. - Nelaen, 04/25 M.D. Hydroxyzine HCL 03/29 Hx Tablets 25mg 45tab please take M06.9 s 2 at night Lala, - as needed M.D. 12/24 for itching Levofloxacin 03/20 Hx Tablets 500mg 7tabs 1 by mouth L03.211 every day D. - Dominicqueen, 03/29 M.D. Dilaudid 02/21 Hx Tablets 2mg 15tab 1 tab q4h M26.603 Jose Luis s prn Benedict Williamson, - M.D.,FACP 04/25 Rituxan 02/21 Hx Solution 100mg/10M 500mg 375 mg/m2 M05.79 L weekly x 4 Lala, - doses On M.D. 11/13 Hold Per PT Duloxetine HCL 02/[address] 30mg 90cap please take Part s 2 tabs Lala, - daily M.D. 01/26 Duloxetine HCL 01/[address] 60mg 30cap 1 by mouth Part s every day Lala, - M.D. 02/05 Cymbalta 01/[address] 30mg 60cap 1 by mouth M05.79 Part s every day Lala, - for 1 week M.D. 01/24 then daily ongoing (please taper off of Celexa) Methotrexate 12/18 Hx Solution 50mg/2ML 40ml 0.8 M05.79 Cristofer Sodium (PF) milliliters Lala, - sc weekly M.D. 08/19 ( supply please) On Hold Per PT Hydrocodone-Acetam 12/17 Hx Tablets 10-325mg 90tab 1 tab by M26.603 Cristofer cavazos s mouth up to Lala, - 3 times M.D. 02/21 daily needed for pain Imodium A-D 12/17 Hx Tablets 2mg 45tab one by s mouth once Lala, - a day as M.D. 01/26 needed for diarrhea - OTC Zofran 11/29 Hx Tablets 8mg 12tab take 1 s tablet by Lala, - mouth every M.D. 07/28 day needed for nausea Neutrasal 11/20 Hx Packet [...] hours as needed pain Ergocalciferol Hx Capsules [id number] 1 tab by mouth Unknown - every [...] Form Strength Qnty SIG Indications Ordering Provider PPD 02/25/ Administered Injection Cristofer Reeves M.D. Triamcinolone 12/24/ Administered Injection Cristofer (Kenalog) Pam Reeves M.D. Immunizations CPT Code Status Date Vaccine Reaction Lot # [id number] Given 02/25/2017 Influenza Virus Vaccine, no immediate [...] IU/mL TB Nil Result 4.98 IU/mL 2 Laboratory test finding 07/28/2017 Erythrocyte Sed Rate 20 mm/Hr High 0- 14 3 C Reactive Protein 12.40 mg/L High < [...] 0-2 Nucleated Red Blood Cells % 0.2 Comp Metabolic Panel 07/28/2017 Sodium 136 mmol/L [...] Egfr Non- 92.3 >60 Egfr 118.8 >60 5 Laboratory test finding 07/01/2017 Erythrocyte Sed Rate 15 mm/Hr High 0- 14 C Reactive Protein 1.22 mg/L < 5.00 6 CBC W/Auto Diff 07/01/2017 White Blood Count [...] Egfr Non- 99.0 >60 Egfr 127.4 >60 7 CBC Auto Diff 02/25/2017 White Blood Count [...] C Reactive Protein 2.45 mg/L < 5.00 8 Comp Metabolic Panel 02/06/2017 Sodium 140 mmol/L [...] Egfr Non- 107.2 >60 Egfr 137.8 >60 9 Lipid Profile (Trig/Chol/HDL) 02/06/2017 Triglycerides 65 mg/dL 10 Cholesterol 187 mg/dL 11 HDL Cholesterol 89.4 mg/dL 12 LDL Cholesterol 85 mg/dL 13 CBC Auto Diff 11/25/2016 White Blood Count [...] Sed Rate 21 mm/Hr High 0- 14 Laboratory test finding 11/19/2016 C Reactive Protein 5.44 mg/L High < 5.00 14 Magnesium 1.7 mg/dL Low 1.9-2.7 15 Comp Metabolic Panel 11/19/2016 Sodium 138 mmol/L [...] Egfr Non- 96.0 >60 Egfr 123.5 >60 16 Laboratory test finding 08/20/2016 C Reactive Protein 2.22 mg/L < 5.00 17 Erythrocyte Sed Rate 17 mm/Hr High 0-14 18 Comp Metabolic Panel 08/20/2016 Sodium 138 mmol/L [...] Egfr Non- 82.8 >60 Egfr 106.5 >60 19 CBC Auto Diff 08/20/2016 White Blood Count 3.3 10^3/uL Low 3.5-10.8 20 Red Blood Count 3.84 10^6/uL Low 4.0-5.4 [...] 0-2 Nucleated Red Blood Cells % 0.1 CBC Auto Diff 07/19/2016 White Blood Count [...] Methyltransferase Genotyping 07/09/2016 TPMT Genotype Result 05/12 21 TPMT Interpretation See Comment 22 Reviewed By See Comment 23 Comp Metabolic Panel 07/09/2016 Sodium 139 mmol/L [...] Egfr Non- 111.4 >60 Egfr 143.3 >60 24 CBC Auto Diff 07/09/2016 White Blood Count 2.4 10^3/uL Low 3.5-10.8 25 Red Blood Count 3.49 10^6/uL Low 4.0-5.4 [...] C Reactive Protein 1.07 mg/L < 5.00 26 Erythrocyte Sed Rate 15 mm/Hr High 0-14 [...] Cells % 0.1 Laboratory test finding 06/10/2016 Erythrocyte Sed Rate 15 mm/Hr High 0- 14 Comp Metabolic Panel 06/10/2016 Sodium 134 mmol/L [...] Egfr Non- 101.3 >60 Egfr 130.3 >60 27 Laboratory test finding 06/10/2016 C Reactive Protein 2.07 mg/L < 5.00 28 Laboratory test finding 06/06/2016 Erythrocyte Sed Rate 17 mm/Hr High 0- 14 C Reactive Protein 3.35 mg/L < 5.00 29 TSH (Thyroid Stim Horm) 1.40 mcIU/mL 0.34-5.60 CBC Auto Diff 06/06/2016 White Blood Count [...] Cells % 0.1 Laboratory test finding 06/06/2016 Creatine Kinase(CK) 50 U/L 10-223 Comp Metabolic Panel 06/06/2016 Sodium 135 mmol/L [...] Egfr Non- 88.2 >60 Egfr 113.5 >60 30 Urinalysis Profile 06/06/2016 Urine Color Yellow Urine Appearance Clear Urine Specific [place] 1.018 1.010-1.030 Urine pH 6.0 5-9 Urine Urobilinogen Negative Negative Urine Ketones Trace Negative Urine Protein Negative Negative Urine Leukocytes Negative Negative Urine Blood Negative Negative * * Negative 31 Urine Nitrite Negative Negative Urine Bilirubin Negative Negative Urine Glucose Negative Negative Laboratory test finding 06/06/2016 Reference Lab Test See Comment 32 Laboratory test finding 04/09/2016 C Reactive Protein 4.39 mg/L < 5.00 33 Erythrocyte Sed Rate 26 mm/Hr High 0-14 CBC Auto Diff 04/09/2016 White Blood Count 3.1 10^3/uL Low 3.5-10.8 34 Red Blood Count 3.97 10^6/uL Low 4.0-5.4 [...] Blood Cells % 0 Comp Metabolic Panel 04/09/2016 Sodium 137 mmol/L [...] Egfr Non- 91.6 >60 Egfr 117.8 >60 35 Laboratory test finding 03/29/2016 C Reactive Protein 4.59 mg/L < 5.00 36 Erythrocyte Sed Rate 29 mm/Hr High 0-14 37 CBC Auto Diff 03/29/2016 White Blood Count [...] Egfr Non- 114.2 >60 Egfr 146.9 >60 38 Laboratory test finding 03/20/2016 C Reactive Protein 3.18 mg/L < 5.00 39 Laboratory test finding 02/23/2016 Erythrocyte Sed Rate 19 mm/Hr High 0- 14 C Reactive Protein 1.25 mg/L < 5.00 40 CBC Auto Diff 02/23/2016 White Blood Count [...] Egfr Non- 96.4 >60 Egfr 124.0 >60 41 Laboratory test finding 12/20/2015 C Reactive Protein 1.76 mg/L < 5.00 42 Erythrocyte Sed Rate 21 mm/Hr High 0-14 43 Comp Metabolic Panel 12/20/2015 Sodium 138 mmol/L [...] Egfr Non- 98.1 >60 Egfr 126.2 >60 44 CBC Auto Diff 12/20/2015 White Blood Count [...] test finding 10/25/2015 Anti Ssa/Ro <0.2 U 45 Anti SSB LA <0.2 U 46 CBC Auto Diff 10/25/2015 White Blood Count [...] Reactive Protein 16.87 mg/L High < 5.00 47 Complement C3 110 mg/dL 75 - 175 48 Complement C4 30 mg/dL 14 - 40 49 Anti Double Stranded Dna AB <12.3 IU/mL 50 Rheumatoid Factor 118 IU/mL <15 51 Smooth Muscle Antibody Negative Negative 52 Scleroderma AB (SCL70) 10/25/2015 Scleroderma Ab <0.2 U 53 Laboratory test finding 10/25/2015 Rna Polymerase III Igg <10.0 U 54 Anti Nuclear Antibody 0.7 U 55 TSH (Thyroid Stim Horm) 0.81 ?IU/mL 0.34-5.60 56 Celiac Panel 10/25/2015 Tissue Transglutaminase IgA Ab <1.2 U/mL 57 Immunoglobulin A 138 mg/dL 61 - 356 Celiac Interpretation See Comment 58 Anca Panel For Vasculitis 10/25/2015 Myeloperoxidase AB <0.2 U 59 Proteinase 3 AB <0.2 U 60 Laboratory test finding 10/25/2015 Creatine Kinase(CK) 41 U/L 10-223 61 Cardiolipin Igg/Igm 10/25/2015 Phospholipid Ab IgM, S 11.6 MPL High 62 Phospholipid Ab IgG < 4.0 GPL 63 Laboratory test finding 10/25/2015 Lyme Disease PCR Negative Negative 64 Aso (Antistreptolysin O) Titer Negative IU/mL <200 Iu/mL 65 Hla B27 10/25/2015 Hla B27 Negative 66 Hla B27 Interp See Comment 67 Laboratory test finding 10/25/2015 Immunoglobulin E (Ige) 32.0 kU/L <= 214 68 Cyclic Citrullinated Pep Igg >250.0 U 69 Laboratory test finding 10/18/2015 C Reactive Protein 5.89 mg/L High < 5.00 70 Laboratory test finding 10/04/2015 Ferritin 87.9 ng/mL 11-307 Iron & Iron Binding Capacity 10/04/2015 Iron 90 g/dL 50-212 Unsaturated Iron Binding 238 g/dL Total Iron Binding Capacity 328 g/dL 250-450 % Iron Saturation 27 % 15-55 Laboratory test finding 10/04/2015 C Reactive Protein 8.69 mg/L High < 5.00 71 Comp Metabolic Panel 10/04/2015 Sodium 137 mmol/L [...] Egfr Non- 84.5 >60 Egfr 108.7 >60 72 CBC Auto Diff 10/04/2015 White Blood Count [...] Nucleated Red Blood Cells % 0.1 1 No interferon-gamma response to M. tuberculosis antigens was detected. Infection with M. tuberculosis is unlikely. A single negative result does not exclude infection with M. tuberculosis. In patients at high risk for M.tuberculosis infection, a second test should be considered in accordance with the 2017 ATS/IDSA/CDC Clinical Practice Guidelines for Diagnosis of Tuberculosis in Adults and Children [Keinscarolinan DM et. al. Clin. Infect. Dis. 2017;64(2):111-115]. 2 Test Performed by: [facility] [address] [place] [id number] 3 Please check labs 2 days before follow up 4 Acute inflammation: >10.00 5 Because ethnic data is not always readily [...] 15-29 5 Kidney failure <15 (or dialysis) 6 Acute inflammation: >10.00 7 Because ethnic data is not always readily [...] 15-29 5 Kidney failure <15 (or dialysis) 8 Acute inflammation: >10.00 9 Because ethnic data is not always readily [...] 15-29 5 Kidney failure <15 (or dialysis) 10 Desirable <150 Borderline high 150-199 High 200-499 Very High >500 11 Desirable <200 Borderline high 200-239 High >239 12 Low <40 Desirable: 40-60 High: >60 13 Desirable: <100 mg/dL Near Optimal: 100-129 mg/dL Borderline High: 130-159 mg/dL High: 160-189 mg/dL Very High: >189 mg/dL 14 Acute inflammation: >10.00 15 Please check in 1 month 16 Because ethnic data is not always readily [...] 15-29 5 Kidney failure <15 (or dialysis) 17 Acute inflammation: >10.00 18 Please check this week 19 Because ethnic data is not always readily [...] 15-29 5 Kidney failure <15 (or dialysis) 20 Consistent with previous results on 07/19/16. 21 TPMT *2, *3A, *3B, *3C, *4, *5, *8, and *12 were not detected. 22 This individual most likely has the *1/*1 [...] to definitively assign phenotype in this setting. (Order Cassidy Test ID TPMT, Published name: Thiopurine Methyltransferase [...] its performance characteristics determined by [facility] in a manner consistent with CLIA requirements. This test has not been cleared or approved by the U.S. Food and Drug Administration. 23 RESULT: Ananth Martinez, Ph.D. Test Performed by: [address] [address] Plant Senior Manager: Franc Gonzalez II, M.D., Ph.D. 24 Because ethnic data is not always readily [...] 15-29 5 Kidney failure <15 (or dialysis) 25 Consistent with previous results on 06/21/16. 26 Acute inflammation: >10.00 27 Because ethnic data is not always readily [...] 15-29 5 Kidney failure <15 (or dialysis) 28 Acute inflammation: >10.00 29 Acute inflammation: >10.00 30 Because ethnic data is not always readily [...] 15-29 5 Kidney failure <15 (or dialysis) 31 *Ascorbic acid is present which may interfere with detection of blood. 32 Procedure Result Units Ref Interval Amphetamines, S/P, [...] use. Test developed and characteristics determined by [facility]. See Compliance Statement B: [employer] Test Performed by: [facility] [address] [place], [place] [id number] [email or web address] Theodore Villagomez MD - Director of Laboratories --- 06/10/16 1417 --- Ref Lab Test previously reported as: See Comment Test Result Flag Unit RefValue See Comment See Comment Drug Screen 9 Panel, Serum or Plasma-Immunoassay Screen with Reflex to Mass Spectrometry Confirmation/Quantitation Testing is complete. Final report has been sent to the referring laboratory. Test Performed by: [facility] [address] [place] [address] 33 Acute inflammation: >10.00 34 Consistent with previous results on 03/31/16. 35 Because ethnic data is not always readily [...] 15-29 5 Kidney failure <15 (or dialysis) 36 Acute inflammation: >10.00 37 Please check labs today 38 Because ethnic data is not always readily [...] 15-29 5 Kidney failure <15 (or dialysis) 39 Acute inflammation: >10.00 40 Acute inflammation: >10.00 41 Because ethnic data is not always readily [...] 15-29 5 Kidney failure <15 (or dialysis) 42 Acute inflammation: >10.00 43 Please check this week 44 Because ethnic data is not always readily [...] 15-29 5 Kidney failure <15 (or dialysis) 45 REFERENCE VALUE <1.0 (Negative) Test Performed by: [place] [address] Plant Senior Manager: Franc Gonzalez II, M.D., Ph.D. 46 REFERENCE VALUE <1.0 (Negative) Test Performed by: [place] [address] Plant Senior Manager: Franc Gonzalez II, M.D., Ph.D. 47 Acute inflammation: >10.00 48 Test Performed by: [place] [address] Plant Senior Manager: Franc Gonzalez II, M.D., Ph.D. 49 Test Performed by: [place] [address] Plant Senior Manager: Franc Gonzalez II, M.D., Ph.D. 50 REFERENCE VALUE <30.0 (Negative) Test Performed by: [place] [address] Plant Senior Manager: Franc Gonzalez II, M.D., Ph.D. 51 Test Performed by: [place] [address] Plant Senior Manager: Franc Gonzalez II, M.D., Ph.D. 52 Test Performed by: [place] [address] Plant Senior Manager: Franc Gonzalez II, M.D., Ph.D. 53 REFERENCE VALUE <1.0 (Negative) Test Performed by: [place] [address] Plant Senior Manager: Franc Gonzalez II, M.D., Ph.D. 54 REFERENCE VALUE <20.0 (Negative) Test Performed by: [place] [address] Plant Senior Manager: Franc Gonzalez II, M.D., Ph.D. 55 REFERENCE VALUE <=1.0 (Negative) Test Performed by: [place] [address] Plant Senior Manager: Franc Gonzalez II, M.D., Ph.D. 56 Please check this week 57 REFERENCE VALUE <4.0 (Negative) Test Performed by: [place] [address] Plant Senior Manager: Franc Gonzalez II, M.D., Ph.D. 58 Negative serology. Celiac disease unlikely. However, approximately 10% of patients with celiac disease are seronegative. Also, patients who are already adhering to a gluten-free diet may be seronegative. If celiac disease is highly clinically suspected, consider HLA-DQ typing. Test Performed by: [place] [address] Plant Senior Manager: Franc Gonzalez II, M.D., Ph.D. 59 REFERENCE VALUE <0.4 (Negative) 60 REFERENCE VALUE <0.4 (Negative) Test Performed by: [place] [address] Plant Senior Manager: Franc Gonzalez II, M.D., Ph.D. 61 Please check this week 62 Interpretation: Borderline (10.0-14.9) REFERENCE VALUE <10.0 (Negative) 63 REFERENCE VALUE <10.0 (Negative) Test Performed by: [place] [address] Plant Senior Manager: Franc Gonzalez II, M.D., Ph.D. 64 A negative result does not exclude infection with Borrelia burgdorferi. Serologic testing as per CDC guidelines may be indicated. ADDITIONAL INFORMATION Laboratory developed test. Test Performed by: [place] [address] Plant Senior Manager: Franc Gonzalez II, M.D., Ph.D. 65 Normal values may vary with age, season and geographic area. Titers above upper limits may be indicative of infection, however only a two dilution rise in titer is required to be considered significant. ASO titer will usually rise above upper limits within one week of exposure, increase to peak levels at 3-5 weeks and return to baseline level at 6-12 twelve months. 66 REFERENCE VALUE Not Applicable 67 RESULT: HLA-B27 antigen was not detected. ADDITIONAL INFORMATION Method: Flow Cytometry Performing Laboratory CLIA# [id number] Test Performed by: [place] [address] Plant Senior Manager: Franc Gonzalez II, M.D., Ph.D. 68 Test Performed by: [facility] [place] [address] Plant Senior Manager: Franc Gonzalez II, M.D., Ph.D. 69 Interpretation: Strong Positive (>=60.0) REFERENCE VALUE <20.0 (Negative) Test Performed by: [place] [address] Plant Senior Manager: Franc Gonzalez II, M.D., Ph.D. 70 Acute inflammation: >10.00 71 Acute inflammation: >10.00 72 Because ethnic data is not always readily [...] Procedures Date CPT Code Description Status 09/03/2017 93880 Nerve Conduction 07-08 Studies Completed 09/03/2017 87822 Needle Electromyography Complete, Five Or More Muscles Completed Studied 09/03/2017 77683 Needle Electromyography Each Extremity W/Related Completed Paraspinal Areas 12/24/2016 97249 Inject/Drain Joint/Bursa Major W/O US Completed Encounters Type Date Location Provider CPT E/M Dx Office Visit 09/12/2017 [facility] Aysha Espinal M.D. 84000 G43.011 4:00p Services Of Paramedic R20.2 Office Visit 08/28/2017 9:40a [facility] Cristofer Reeves 74979 M05.79 Of Paramedic M.DSheree M79.7 R79.82 Z79.899 Office Visit 07/29/2017 10:00a [place] Espinal 99047 G43.011 [facility] Serv Of Paramedic M.D. Office Visit 07/17/2017 2:40p [facility] Of Cristofer Reeves 32121 M05.79 Marley Jeffries.DSheree M79.7 R79.82 Z79.899 Office Visit 07/01/2017 10:40a [facility] Cristofer Reeves 20780 M05.79 Of Paramedic Nesha.Benedict M79.7 R79.82 Z79.899 I73.00 Office Visit 06/20/2017 2:45p [facility] Aysha Espinal M.D. 55540 G43.719 Services Of Paramedic R41.89 Office Visit 05/28/2017 9:00a [facility] Aysha Espinal M.D. 41981 G43.719 Services Of Paramedic R41.89 R20.2 M05.79 Office Visit 04/30/2017 8:20a [facility]ology Services Cristofer Reeves 28779 M05.79 Of Paramedic M.D. M79.7 R79.82 Z79.899 I73.00 Office Visit 04/16/2017 9:00a Rheumatology Services Of Nurse Visit 70020 M05.79 [facility] Office Visit 02/25/2017 9:20a [facility] Services Of Cristofer Reeves 13595 M05.79 Marley Jeffries.DSheree M79.7 R79.82 Z79.899 F06.4 Z23 Z11.1 Office Visit 01/14/2017 4:00p [facility] Of Cristofer Reeves 30798 M06.9 Paramedic Timothy M79.7 M70.62 R79.82 Z79.899 Office Visit 12/24/2016 3:40p [facility] Of Cristofer Reeves, 88540 M06.9 Paramedic M.D. M79.7 G43.009 M70.62 R79.82 Z79.899 Office Visit 10/03/2016 11:00a [facility] Of Cristofer Reeves, 83045 M06.9 Paramedic M.D. Z79.899 R79.82 M79.7 Office Visit 08/19/2016 9:20a [facility] Of Cristofer Reeves, 81726 M06.9 Paramedic M.D. Z79.899 R79.82 M79.7 M25.559 F06.4 Office Visit 07/08/2016 2:20p [facility] Of Cristofer Reeves, 24586 M06.9 Paramedic M.D. Z79.899 R79.82 M79.7 R10.13 Office Visit 06/06/2016 10:20a [facility] Of Cristofer Reeves 85665 M06.9 Paramedic M.D. Z79.899 R79.82 M79.7 Office Visit 06/03/2016 2:00p [facility] [place] Midni Kc M.D. 48432 Z01.89 Of [facility] [place] Z86.718 Z85.43 M05.79 Office Visit 04/26/2016 11:10a [facility] Edwin Mcmullen 12780 L03.211 Infectious Diseases Timothy Tran Z79.899 Office Visit 04/01/2016 4:00p [facility] Edwin Mcmullen 29143 L03.211 Infectious Diseases Timothy Tran M27.2 Office Visit 03/29/2016 12:20p [facility] Of Cristofer Reeves, 41951 M06.9 Marley Aguirre R52 R79.82 Z79.899 Office Visit 03/20/2016 1:20p [facility] Edwin Mcmullen 82790 L03.211 Infectious Diseases Timothy Tran R68.84 Z79.899 R19.7 Office Visit 03/14/2016 [facility] Dana Isbell, 78805 L03.211 4:00p [facility] J45.909 R52 M05.9 Office Visit 03/14/2016 11:18a [facility] Alberto Tran, 30289 R68.84 Infectious Diseases M.D. M06.9 Z79.899 Office Visit 03/13/2016 9:58a [facility] Services Cristofer Reeves, 95961 R79.82 Of Paramedic M.D. L03.211 M05.79 G89.29 [facility] 21691 L03.211 3:59p [facility] Hospital[facility] J45.909 R52 M05.9 Office Visit 03/12/2016 9:57a [facility] Cristofer Reeves 75457 R79.82 Of Paramedic M.D. L03.211 M05.79 G89.29 Office Visit 02/22/2016 1:20p [facility] Services Cristofer Reeves 08646 M05.79 Of Paramedic M.D. R79.82 Z79.899 M79.7 R45.89 M26.603 C56.9 Office Visit 01/23/2016 11:20a [facility] Services Cristofer Reeves 96935 M05.79 Of Paramedic M.D. R79.82 Z79.899 R45.89 M79.7 Office Visit 01/02/2016 2:20p [facility] Services Cristofer Reeves 86328 M05.79 Of Paramedic M.D. R79.82 R76.0 Z79.899 M79.671 Office Visit 12/19/2015 4:20p [facility] Services Cristofer Reeves 09844 M05.79 Of Paramedic M.D. R79.82 R76.0 Z79.899 Z85.22 Office Visit 11/21/2015 10:40a [facility] Services Cristofer Reeves 43729 M05.79 Of Paramedic M.D. R79.82 R76.0 Z79.899 R68.2 Office Visit 10/24/2015 1:00p [facility]ology Services Cristofer Reeves 38519 R79.82 Of Paramedic M.D. R76.0 L50.1 M06.4 H04.123 R68.2 T81.4xxD Z16.21 B95.2 Z79.899 Office Visit 10/17/2015 11:10a [facility] For Alberto Mcmullen 69705 T81.4xxD Infectious Diseases Timothy Tran Z16.21 B95.2 Office Visit 10/03/2015 10:30a [facility] For Alberto Mcmullen 12577 T81.4xxD Infectious Alan Tran M.D. B95.2 Office Visit 09/15/2015 10:57a [facility] For Alberto Mcmullen 81159 T81.4xxA Infectious Diseases Timothy Tran Z98.89 Office Visit 09/14/2015 1:51p [facility], [place] [address] R42 Hospitalists E86.0 R05 Office Visit 09/13/2015 10:42a [facility] For Alberto Mcmullen 11062 T81.4xxA Infectious Alan Tran M.D. Z98.89 Office Visit 09/13/2015 1:51p [facility], [place] [address] R42 Hospitalists E86.0 R05 Office Visit 09/12/2015 10:29a [facility] Edwin Mcmullen 57193 T81.4xxA Infectious Alan Tran M.D. Z98.89 Office Visit 09/11/2015 12:06p [facility] Edwin Mcmullen 58921 T81.4xxA Infectious Alan Tran M.D. Office Visit 09/08/2015 11:34a [facility] Edwin Mcmullen 73680 T81.4xxA Infectious Alan Tran M.D. I47.2 Z85.43 Plan of Care Future Appointment(s):01/08/2018 11:20 am - Cristofer Reeves M.D. at [facility]01/23/2018 10:00 am - Aysha Espinal M.D. at [facility]10/30/2017 - Cristofer Reeves M.D.M05.79 Rheu arthritis w rheu factor mult site w/o org/sys involvNew Medication:Cimzia Starter Kit 6 X 200 mg/ MLM79.7 ZjylhjxafsnjX49.82 Elevated C-reactive protein (CRP)Z79.899 Other intermediate (current) drug therapyFollow up:Follow up in 2 months or sooner if needed
[2017-11-24 17:02] VITALS: BP 139/79
--- NOTE | 2017-11-24 17:18 | UC ---
Skin Complaint HPI - HPI Summary HPI Summary: Patient presents with a splinter in her right great toe. Patient states she was walking on her pressure-treated deck when a splinter went in. Patient states it was sticking out she pulled some of it. Patient states her still some retained. Patient's last tetanus 8 years ago. Patient is immunocompromised on agents for moderate. Patient without any bleeding. Patient without mild pain. Patient's medications reviewed this visit. - History of Current Complaint Chief Complaint: UCSkin Time Seen by Provider: 11/24/17 16:52 Stated Complaint: SPLINTER FOOT Hx Obtained From: Patient Hx Last Menstrual Period: 2009 ?: No Onset/Duration: Sudden Onset Skin Exposure Onset/Duration: Hours Ago Onset Severity: Mild Pain Intensity: 7 Location: Discrete - Allergy/Home Medications Allergies/Adverse Reactions: Allergies Allergy/AdvReac Type Severity Reaction Status Date / Time cephalexin [From Keflex] Allergy Hives Verified 11/24/17 17:03 Gadolinium-Containing Allergy Shortness Verified 11/24/17 17:03 Contrast Medi of Breath latex Allergy Hives Verified 11/24/17 17:03 Penicillins Allergy Hives Verified 11/24/17 17:03 Sulfa (Sulfonamide Allergy Hives Verified 11/24/17 17:03 Antibiotics) vancomycin Allergy Hives Verified 11/24/17 17:03 adhesive by 3M Allergy Hives Uncoded 11/24/17 17:03 MRI contrast Allergy Hives Uncoded 11/24/17 17:03 Home Medications: Home Medications Gabapentin CAP(*) [Neurontin 300 CAP(*)] 300 mg PO BID 11/24/17 [History Confirmed 11/24/17] Tofacitinib Citrate [Xeljanz] 5 mg PO BID 11/24/17 [History Confirmed 11/24/17] Review of Systems Constitutional: Negative Skin: Other - foreign body left great toe All Other Systems Reviewed And Are Negative: Yes PMH/Surg Hx/FS Hx/Imm Hx Previously Healthy: Yes - rheumatoid arthritis - Surgical History Surgical History: Yes Surgery Procedure, Year, and Place: Ovarian CA partial oopharectomy 2002. Bariatric - GASTRIC BYPASS 2009. Lt Adrenal mass removed lt side 2005,. Twisted bowel sm intestine 2011. AICD ( CARDIAC DEFIB) 2009. AICD ( CARDIAC DEFIB) removal 2014 - SEE CXR IN 2016. Tonsillectomy and adenoidectomy 1990. Hernia repair and abdominoplasty 2016. Wound I&D 2016. NASAL PHARINGEAL TUMOR REMOVED - 1998. BREAST BIOPSY - BENIGN-BILATERAL - Family History Known Family History: Positive: Other - Breast Cancer - Social History Lives: With Family Alcohol Use: None Alcohol Amount: 1 GLASS OF WINE AT NIGHT Substance Use Type: Marijuana Substance Use Comment - Amount & Last Used: USES ABOUT ONCE A WEEK Smoking Status (MU): Never Smoked Tobacco Have You Smoked in the Last Year: No - Immunization History Most Recent Influenza Vaccination: 2015 Most Recent Tetanus Shot: 2013 Most Recent Pneumonia Vaccination: 2013 Physical Exam - Summary Physical Exam Summary: Vital Signs Reviewed: Yes A+Ox3, no distress Eyes: Conjunctiva Clear ENT: Hearing grossly normal neck: supple Respiratory: Positive: No respiratory distress, No accessory muscle use Cardiovascular: skin color reflect adequate perfusion Musculoskeletal Exam: HILLMAN x 4 without difficulty Neurological: Positive: Alert, ambulatory without difficulty Psychological: Positive: Normal Response To Family Skin: Positive: 1.5cm visible foreign body pad of right great toe, no bleeding, mild discomfort Triage Information Reviewed: Yes Vital Signs: Initial Vital Signs Temp 98.4 F 11/24/17 16:56 Pulse 80 11/24/17 16:56 Resp 17 11/24/17 16:56 BP 139/79 11/24/17 16:56 Pulse Ox 100 11/24/17 16:56 Laceration Repair - Laceration Repair 1 Procedure Summary: verbal permission to treat time out completed with RN at bedside pt prepped in usual, sterile fashion wound anesthetized with 2ml 1%lidocaine, no epi used 11 blade scaple, opened skin above visible fb. fb removed with splinter forceps in 3 distinct pieced copiously irrigated with sterile saline, 100m pt tolerated well reviewed with pt wound care s/s infection return precautions Course/Dx - Course Course Of Treatment: Patient presents with retained foreign body, wood splinter , and right great toe. Visible foreign body. Palpable and exam. Removed in whole. Copiously irrigated. Patient tolerated procedure well. Recommend Doxy twice a day for 7 days. Recommend warm water soaks with chlorhexidine twice a day for 5 days. Reviewed with patient wound care. Antibiotic ointment and bandage Patient's tetanus up-to-date. Patient comfortable in agreement with plan. - Diagnoses Provider Diagnoses: soft tissue foreign body - removed Discharge - Sign-Out/Discharge Documenting (check all that apply): Patient Departure - Discharge Plan Condition: Stable Disposition: HOME Prescriptions: DOXYcycline CAP(*) [DOXYcycline 100MG CAP(*)] 100 mg PO BID #14 cap Patient Education Materials: Soft Tissue Foreign Body (ED) Referrals: Faiza BARNEY,Leni Carreon [Primary Care Provider] - Additional Instructions: - soak foot 2 times a day for 10 min. Dry completely, cover with antibiotic ointment and bandage - take antibiotics as prescribed until gone - the numbing medication will wear off in approximately 90 minutes. Okay to take ibuprofen or tylenol as needed for pain - monitor for signs of infection - reddness, red streaking, odor, pain, fever, pus - contact your doctor or return here - Billing Disposition and Condition Condition: STABLE Disposition: Home
[2017-11-24] MEDS ORDERED: Lidocaine 1%* 5 ML VIAL INJ ONE (17:24)
--- NOTE | 2017-11-26 12:39 | UC ---
- Progress Note Progress Note: Pt called stating doxycycline is upsetting her stomach. I will change antibiotic to ciprofloxacin. Discharge - Sign-Out/Discharge Documenting (check all that apply): Post-Discharge Follow Up - Discharge Plan Condition: Stable Disposition: HOME Prescriptions: DOXYcycline CAP(*) [DOXYcycline 100MG CAP(*)] 100 mg PO BID #14 cap Patient Education Materials: Soft Tissue Foreign Body (ED) Referrals: Faiza BARNEY,Leni Carreon [Primary Care Provider] - Additional Instructions: - soak foot 2 times a day for 10 min. Dry completely, cover with antibiotic ointment and bandage - take antibiotics as prescribed until gone - the numbing medication will wear off in approximately 90 minutes. Okay to take ibuprofen or tylenol as needed for pain - monitor for signs of infection - reddness, red streaking, odor, pain, fever, pus - contact your doctor or return here - Billing Disposition and Condition Condition: STABLE Disposition: Home
== END 2017-11-24 17:53 | disposition home or self-care (01) ==
LOC: UCCORT 16:10
DX: S90.451A Superficial foreign body, right great toe, initial encounter (principal); W45.8XXA Other foreign body or object entering through skin, initial encounter; Y93.01 Activity, walking, marching and hiking; Y92.89 Other specified places as the place of occurrence of the external cause; Z88.0 Allergy status to penicillin; Z88.2 Allergy status to sulfonamides; M06.9 Rheumatoid arthritis, unspecified
CPT/HCPCS: 99212; G0463

== ENCOUNTER 2018-03-21 17:21 | Emergency (ER) | payer OTHER ==
[2018-03-21 17:55] VITALS: BP 161/79
[2018-03-21] MEDS ORDERED: Tetanus-Diptheria Toxoids* 0.5 ML SYRINGE IM ONE (17:58)
[2018-03-21] MEDS ORDERED: Lidocaine 1%* 5 ML VIAL INJ ONE (18:01)
--- NOTE | 2018-03-21 18:05 | UC ---
Hand/Wrist HPI - HPI Summary HPI Summary: 47-year-old woman comes in to clinic today with a chief complaint of a laceration to the left index finger. This occurred just prior to arrival. She was attempting to open a bottle with a knife when the knife slipped and cut her left index finger. She reports copious bleeding. This was stopped with direct pressure. No complaint of any numbness or weakness. Last tetanus was in 2012. - History Of Current Complaint Chief Complaint: UCLaceration Stated Complaint: FINGER LACERATION Time Seen by Provider: 03/21/18 17:54 Hx Last Menstrual Period: hasn't had a period for four years; see her history Pain Intensity: 8 - Allergies/Home Medications Allergies/Adverse Reactions: Allergies Allergy/AdvReac Type Severity Reaction Status Date / Time cephalexin [From Keflex] Allergy Hives Verified 03/19/18 13:15 Gadolinium-Containing Allergy Shortness Verified 03/19/18 13:15 Contrast Medi of Breath latex Allergy Hives Verified 03/19/18 13:15 Penicillins Allergy Hives Verified 03/19/18 13:15 Sulfa (Sulfonamide Allergy Hives Verified 03/19/18 13:15 Antibiotics) vancomycin Allergy Hives Verified 03/19/18 13:15 adhesive by 3M Allergy Hives Uncoded 03/19/18 13:15 MRI contrast Allergy Hives Uncoded 03/19/18 13:15 Home Medications: Home Medications Golimumab (NF) [Simponi Aria (NF)] 50 mg IV 03/21/18 [History] PMH/Surg Hx/FS Hx/Imm Hx Previously Healthy: No Respiratory History: Asthma Other Neurological History: FIBROMYALGIA - Surgical History Surgical History: Yes Surgery Procedure, Year, and Place: Ovarian CA partial oopharectomy 2002. Bariatric - GASTRIC BYPASS 2009. Lt Adrenal mass removed lt side 2005,. Twisted bowel sm intestine 2011. AICD ( CARDIAC DEFIB) 2009. AICD ( CARDIAC DEFIB) removal 2014 - SEE CXR IN 2016. Tonsillectomy and adenoidectomy 1990. Hernia repair and abdominoplasty 2016. Wound I&D 2016. NASAL PHARINGEAL TUMOR REMOVED - 1998. BREAST BIOPSY - BENIGN-BILATERAL - Family History Known Family History: Positive: Other - Breast Cancer - Social History Alcohol Use: Daily Alcohol Amount: wine with dinner Substance Use Type: Marijuana Substance Use Comment - Amount & Last Used: once or twice a month Smoking Status (MU): Never Smoked Tobacco Have You Smoked in the Last Year: No - Immunization History Most Recent Influenza Vaccination: 2015 Most Recent Tetanus Shot: 2013 Most Recent Pneumonia Vaccination: 2013 Review of Systems All Other Systems Reviewed And Are Negative: Yes Constitutional: Positive: Negative Skin: Positive: Other - SEE HPI Eyes: Positive: Negative ENT: Positive: Negative Respiratory: Positive: Negative Cardiovascular: Positive: Negative Gastrointestinal: Positive: Negative Motor: Positive: Negative Neurovascular: Positive: Negative Musculoskeletal: Positive: Negative Neurological: Positive: Negative Psychological: Positive: Negative Is Patient Immunocompromised?: Yes Physical Exam Triage Information Reviewed: Yes Appearance: Well-Appearing, No Pain Distress, Well-Nourished Vital Signs: Initial Vital Signs Temp 98.4 F 03/21/18 17:43 Pulse 83 03/21/18 17:43 Resp 16 03/21/18 17:43 BP 161/79 03/21/18 17:43 Pulse Ox 98 03/21/18 17:43 Vital Signs Reviewed: Yes Eye Exam: Normal Eyes: Positive: Conjunctiva Clear Neck exam: Normal Neck: Positive: Supple Respiratory: Positive: No respiratory distress Musculoskeletal Exam: Normal Musculoskeletal: Positive: ROM Intact Neurological Exam: Normal Neurological: Positive: Alert, Muscle Tone Normal Psychological Exam: Normal Psychological: Positive: Age Appropriate Behavior Skin: Positive: Other - Left index finger has a 1 cm laceration on the radial aspect between the MCP and the PIP. It's linear and the bleeding is controlled. Finger has full range of motion full-strength no sensation deficit normal capillary refill. Procedures - Laceration/Wound Repair 1 Location: upper extremity - LEFT INDEX FINGER Description: Linear Anesthesia: Local, 1.0%, Lido Betadine Prep?: No - SHURCLENS Laceration/Wound Explored: clean Closure: Single Layer Suture Type: Prolene - #FOUR, 5-0 PROLENE Number of Sutures: 4 Layer Closure?: No Sterile Dressing Applied?: Yes Hand/Wrist Course/Dx - Differential Dx/Diagnosis Provider Diagnoses: LACERATION LEFT INDEX FINGER Discharge - Sign-Out/Discharge Documenting (check all that apply): Patient Departure All imaging exams completed and their final reports reviewed: No Studies - Discharge Plan Condition: Stable Disposition: HOME Prescriptions: Clindamycin Cap(NF) [Clindamycin Cap 300 mg Cap(NF)] 300 mg PO TID #20 cap Patient Education Materials: Laceration (ED) Referrals: Faiza BARNEY,Leni Carreon [Primary Care Provider] - Additional Instructions: FOLLOW UP WITH YOUR DOCTOR IF NOT COMPLETELY IMPROVED. SUTURES OUT IN 8-10 DAYS. GET RECHECKED FOR ANY WORSENING OF YOUR CONDITION OR QUESTIONS OR CONCERNS. - Billing Disposition and Condition Condition: STABLE Disposition: Home
[2018-03-21] MEDS ORDERED: Clindamycin CAP* 150 MG PO ONE ×2 (18:36→18:37)
[2018-03-21] MEDS ORDERED: Mupirocin 2% OINT* TUBE TOPICAL ONE (18:36)
== END 2018-03-21 18:56 | disposition home or self-care (01) ==
LOC: UCEAST 17:21
DX: S61.211A Laceration without foreign body of left index finger without damage to nail, initial encounter (principal); W26.0XXA Contact with knife, initial encounter; Y93.89 Activity, other specified; Y92.9 Unspecified place or not applicable
CPT/HCPCS: 12001; 99213; A9270-GY; G0463